=== PATIENT | male | born 1965 | race Caucasian/White ===

== ENCOUNTER 2019-06-16 09:04 | Inpatient (IN) | payer OTHER ==
[~2019-06-16] VITALS: Ht 180.3 cm; Wt 100.9 kg
[2019-06-16] MEDS ORDERED: Bumetanide2 MG PO (09:30)
[2019-06-16] MEDS ORDERED: LEVOFLOXACIN250 MG PO (09:30)
[2019-06-16] MEDS ORDERED: CLON.1 PO (09:30)
[2019-06-16 10:09] LABS: BASOPHILS ABSOLUTE AUTO 0.07 K/mm3 (0.00-0.23); BASOPHILS PERCENT AUTO 1 % (0-2); EOSINOPHILS PERCENT AUTO 1 % (0-6); Hematocrit 36.6 % (37.0-53.0); Hemoglobin 12.6 g/dL (13.5-17.5); IMMATURE GRAN ABSOLUTE AUTO 0.03 K/mm3 (0.00-0.10); IMMATURE GRAN PERCENT AUTO 0 % (0-1); LYMPHOCYTES ABSOLUTE AUTO 1.06 K/mm3 (0.84-5.20); LYMPHOCYTES PERCENT AUTO 11 % (21-46); MONOCYTES ABSOLUTE AUTO 0.48 K/mm3 (0.16-1.47); MONOCYTES PERCENT AUTO 5 % (4-13); Mean Corpuscular HGB 30.7 pg (26.0-34.0); Mean Corpuscular HGB Conc 34.4 g/dL (31.5-36.5); Mean Corpuscular Volume 89 fL (80-100); Mean Platelet Volume 9.1 fL (9.1-12.4); NEUTROPHILS ABSOLUTE AUTO 8.31 K/mm3 (1.96-9.15); NEUTROPHILS PERCENT AUTO 83 % (41-73); Platelet Count 200 K/mm3 (150-400); RDW Coefficient Variation 12.5 % (11.7-14.2); Red Blood Cell Count 4.11 M/mm3 (4.30-5.90); White Blood Cell Count 10.05 K/mm3 (4.00-11.30)
[2019-06-16 10:30] LABS: Calcium, Blood 8.1 mg/dL (8.5-10.1); Creatinine, Blood 5.92 mg/dL (0.60-1.20); Potassium, Blood 4.5 mmol/L (3.5-5.5)
[2019-06-16 11:46] LABS: International Normalized Ratio 1.08; Prothrombin Time Results 11.5 Sec (9.7-11.5)
[2019-06-16 11:51] LABS: CHOL/HDL RATIO 7.1; Cholesterol 270 mg/dL (50-200); HDL Cholesterol 38 mg/dL (>39); LDL/HDL RATIO 4.6; Low Density Lipoprotein Chol 176 mg/dL (0-110); Triglycerides 282 mg/dL (30-160); Very Low Density Lipoprot Chol 56 mg/dL (6-32)
[2019-06-16] MEDS ORDERED: Flexeril5 MG PO (13:06)
[2019-06-16] MEDS ORDERED: THYR60 PO (13:08)
[2019-06-16] MEDS ORDERED: LEVFLO500 PO (15:39)
--- NOTE | 2019-06-16 19:17 | NUR ---
SHIFT SUMMARY PT ALERT AND ORIENTED THIS SHIFT. PT TO THE FLOOR THIS AFTERNOON. PT DOWN FOR PERMACATH PLACEMENT SHORTLY AFTER ARRIVAL TO THE FLOOR. PT RETURNED FROM PROCEDURE ALERT AND ORIENTED. DRESSING C/D/I. DR HERNANDEZ TO THE ROOM SHORTLY AFTER, ORDERED DIALYSIS TOMORROW. PT SITTING UP IN CHAIR WITH SPOUSE IN ROOM.
--- NOTE | 2019-06-17 00:37 | NUR ---
PT HYPERTENSIVE, CALLED FOR HYDRALAXINE. GIVEN. WILL RECHECK BP. COMPLAINS OF ONGOING INTERMITANT NAUSEA, MUSCLE CRAMPS, AND LBP. REFUSES ZOFRAN AND TYLENOL.
--- NOTE | 2019-06-17 01:19 | NUR ---
VITALS RECHECKED BP MUCH IMPROVED. PT REQUESTED MELATONIN. GIVEN.
[2019-06-17 05:21] LABS: BASOPHILS ABSOLUTE AUTO 0.06 K/mm3 (0.00-0.23); BASOPHILS PERCENT AUTO 1 % (0-2); EOSINOPHILS ABSOLUTE AUTO 0.07 K/mm3 (0.00-0.68); EOSINOPHILS PERCENT AUTO 1 % (0-6); Hematocrit 32.8 % (37.0-53.0); IMMATURE GRAN ABSOLUTE AUTO 0.02 K/mm3 (0.00-0.10); IMMATURE GRAN PERCENT AUTO 0 % (0-1); LYMPHOCYTES PERCENT AUTO 15 % (21-46); MONOCYTES ABSOLUTE AUTO 0.73 K/mm3 (0.16-1.47); MONOCYTES PERCENT AUTO 7 % (4-13); Mean Corpuscular HGB 30.3 pg (26.0-34.0); Mean Corpuscular HGB Conc 33.5 g/dL (31.5-36.5); Mean Corpuscular Volume 90 fL (80-100); Mean Platelet Volume 9.5 fL (9.1-12.4); NEUTROPHILS ABSOLUTE AUTO 7.45 K/mm3 (1.96-9.15); NEUTROPHILS PERCENT AUTO 76 % (41-73); Platelet Count 187 K/mm3 (150-400); RDW Coefficient Variation 12.7 % (11.7-14.2); RDW Standard Deviation 41.9 fL (35.1-46.3); Red Blood Cell Count 3.63 M/mm3 (4.30-5.90); White Blood Cell Count 9.83 K/mm3 (4.00-11.30)
--- NOTE | 2019-06-17 05:29 | NUR ---
SHIFT SUMMARY PT IS PLEASANT THOUGH QUITE ANXIOUS. HE IS EAGER FOR DIALYSIS TODAY. DIALYSIS CATH PLACED ON 06/15 AND DRESSING HAS BEEN C/D/I THIS NIGHT. PT HAS HAD HYPERTENSION MUCH OF THE NIGHT. CALLED HOSPITALIST AND RECIEVED ORDER TO PUT PT ON TELE SO I COULD GIVE IV LABETALOL. CLONODINE NOT GIVEN PT STATED IT GAVE HIM THROAT PAIN/SWELLING. CALLED AGAIN AND RECIEVED ORDER FOR IV HYDRALAZINE WHICH WAS EFFECTIVE. PT HAS BEEN NAUSEATED THIS NIGHT OFF AND ON BUT HAS REFUSED IV ZOFRAN. HE HAS BEEN AAOX4 THROUGHOUT THE NIGHT. WILL CONTINUE TO MONITOR.
[2019-06-17 05:37] LABS: Albumin, Blood 2.8 g/dL (3.4-5.0); Anion Gap 11 mmol/L (6-16); Blood Urea Nitrogen 94 mg/dL (8-24); CO2, Blood 20 mmol/L (21-32); Calcium, Blood 7.8 mg/dL (8.5-10.1); Chloride, Blood 105 mmol/L (98-108); Creatinine, Blood 6.26 mg/dL (0.60-1.20); Glomerular Filtration Rate 10 (60-); Glucose, Blood 156 mg/dL (70-99); Phosphorus, Blood 6.6 mg/dL (2.5-4.9); Potassium, Blood 4.1 mmol/L (3.5-5.5); Sodium, Blood 136 mmol/L (136-145)
--- NOTE | 2019-06-17 05:45 | NUR ---
PT DID REFUSE MORNING BLOOD SUGAR CHECK. STATES IT IS NOT NECESSARY AND HE WOULD REFUSE THE NOVOLOG EVEN IF HIS BLOOD SUGAR WAS HIGH. STATES IF NEEDED HE WILL CONSENT TO BLOOD SUGAR CHECK BEFORE DIALYSIS.
--- NOTE | 2019-06-17 19:00 | NUR ---
PATIENT IS ALERT AND ORIENTED AND COOPERATIVE WITH CARE. HIS PERMA CATHETER WAS PLACED YESTERDAY. HE HAD HIS FIRST DIALYSIS TREATMENT TODAY. HE COMPLAINED OF FEELING WEAK AND DROWSY FOLLOWING DIALYSIS. HIS HAS BEEN AT THE BEDSIDE. HE WALKS TO THE BATHROOM WITH HIS ASSISTANCE. HE HAS A 24HR URINE BEING COLLECTED. WILL CONTINUE TO MONITOR
[2019-06-17 22:21] LABS: Protein, Urine Quantitative 611.5 mg/dL (0.0-11.9)
--- NOTE | 2019-06-18 00:30 | NUR ---
PT REFUSED 0000 BLOOD SUGAR WELL INSULIN. HE IS AAOX4, IN ROOM. HAS BEEN REFUSING BLOOD SUGARS SINCE LAST NIGHT.
--- NOTE | 2019-06-18 03:46 | NUR ---
PT VERY HYPERTENSIVE 214/101. GAVE HYDRALAZINE 10MG. WILL RECHECK.
[2019-06-18 04:49] LABS: Hematocrit 33.9 % (37.0-53.0); Hemoglobin 11.4 g/dL (13.5-17.5); Mean Corpuscular HGB 30.6 pg (26.0-34.0); Mean Corpuscular HGB Conc 33.6 g/dL (31.5-36.5); Mean Corpuscular Volume 91 fL (80-100); Mean Platelet Volume 9.6 fL (9.1-12.4); Platelet Count 216 K/mm3 (150-400); RDW Coefficient Variation 12.7 % (11.7-14.2); Red Blood Cell Count 3.73 M/mm3 (4.30-5.90); White Blood Cell Count 11.56 K/mm3 (4.00-11.30)
[2019-06-18 05:12] LABS: Albumin, Blood 2.9 g/dL (3.4-5.0); Anion Gap 10 mmol/L (6-16); Blood Urea Nitrogen 64 mg/dL (8-24); Bun/Creatinine Ratio 12.6 (12.0-20.0); CO2, Blood 28 mmol/L (21-32); Calcium, Blood 7.9 mg/dL (8.5-10.1); Chloride, Blood 99 mmol/L (98-108); Creatinine, Blood 5.06 mg/dL (0.60-1.20); Glomerular Filtration Rate 13 (60-); Glucose, Blood 169 mg/dL (70-99); Magnesium, Blood 1.9 mg/dL (1.6-2.4); Phosphorus, Blood 5.3 mg/dL (2.5-4.9); Potassium, Blood 4.4 mmol/L (3.5-5.5); Sodium, Blood 137 mmol/L (136-145)
--- NOTE | 2019-06-18 07:50 | NUR ---
SHIFT SUMMARY PT IS PLEASANT THOUGH VERY ANXIOUS. DOES NOT WANT TO HAVE Q6 BLOOD SUGARS AND HAS REFUSED THEM THIS NIGHT. BLOOD PRESSURE HAS BEEN HIGH, SEE VITALS. TREATED WITH HYDRALAZINE TO GOOD EFFECT. PT LEARNED THIS A.M. THAT HIS SISTER HAD AND IS VERY DISTRAUGHT. I HAVE OFFERED HOSPITAL SPIRITUAL SERVICES BUT PT DECLINES AT THIS TIME. PT IS BAPTISM. NAUSEA OFF AND ON THIS NIGHT TREATED WITH ZOFRAN. REPORT TO ONCOMING RN.
--- NOTE | 2019-06-18 08:10 | NUR ---
Patient said he would like me to come back later when he called me, to get a set of vitals
--- NOTE | 2019-06-18 12:51 | NUR ---
REPORTED OFF TO SHERRIE GRACIA RN. PATIENT IS ALERT AND ORIENTED. NOTIFIED DR. KEMP OF REFUSAL TO HAVE CBG CHECKED AND INSULIN. REMOVED FROM EMAR AND ORDERS. PATIENT AND ABLE TO MAKE THEIR NEEDS KNOWN. NO ACUTE ISSUES AT THIS TIME.
--- NOTE | 2019-06-18 13:06 | NUR ---
ASSUMED CARE: REPORT FROM EVA LERMA. PT SITTING IN ROOM EATING LUNCH WITH AT BEDSIDE. DENIES NEEDS AT THIS TIME. WILL CONTINUE TO MONITOR.
--- NOTE | 2019-06-18 17:51 | NUR ---
HIGH BP: BP AT 1553: 205/94 WITH HR OF 88. 10 MG IV HYDRALAZINE GIVEN AT 1604 ORDERED. BP RECHECKED AT 1708: 188/88 WITH HR OF 89. CALLED DR. KEMP WHO STATED TO GIVE ADDITIONAL 10 MG OF IV HYDRALAZINE AND VERIFIY WITH PT WHAT HIS ALLERGY IS TO CLONIDINE. 10 MG IV HYDRALAZINE GIVEN AT 1732, DURING WHICH PT ALSO COMPLAINED OF NAUSEA AND FEELING "A LITTLE ANXIOUS". 4 MG IV ZOFRAN GIVEN AT 1735. PT STATES HE'S NEVER TAKEN MEDICATION FOR ANXIETY BUT MAY CONSIDER IT LATER IF HE CONTINUES TO "FEEL THIS WAY." PT STATES WHEN HE TOOK CLONIDINE "A COUPLE OF DAYS AGO" IT MADE HIS "THROAT SWELL." WILL RECHECK BP AT [address] KEMP OF THE ABOVE INFORMATION.
--- NOTE | 2019-06-18 18:14 | NUR ---
SHIFT SUMMARY: BP RECHECKED AT 1801: 142/84 WITH HR OF [address] KEMP ORDERED 25 MG PO LOPRESSOR BID, FIRST DOSE GIVEN. DR. KEMP NOTIFIED OF PT'S STATED ANXIETY AND ORDERED 0.5 MG PO ATIVAN Q8H PRN. PT REPORTS HIS NAUSEA IS RESOLVED. HE IS CURRENTLY SITTING UP IN HIS CHAIR EATING DINNER WITH HIS AT BEDSIDE. NO OTHER CHANGES TO REPORT. WILL CONTINUE TO MONITOR AND REPORT TO ONCOMING RN.
--- NOTE | 2019-06-18 22:30 | NUR ---
PT VERY ANXIOUS AND IS HAVING DIFFICULTY RELAXING R/T PERSISTENT SYMPTOMS SINCE DIALYSIS ON DAY SHIFT. HE C/O NAGGING NAUSEA W/DRY HEAVING, TREMORS AND MUSCULAR CRAMPING THAT COMES/GOES AND HAVING PERIODIC HEAT WAVES THAT DISPERSE DOWN HIS ARMS AND DOWN HIS BODY. THESE ARE ACCOMPANIED W/DIAPHORESIS BUT THEN SYMPTOMS RESOLVE. HE ADMITS THEY STARTED AFTER 1ST DIALYSIS TX BUT ARE WORSE FOLLOWING THE 2ND DIALYSIS TX W/INCREASED FREQUENCY. HE HAS SENSATION OF "WANTING TO CLIMB OUT OF HIS OWN BODY" AND FEELING LIKE HE "IS NOT GOING TO SURVIVE THIS". REASSURANCE PROVIDED AND PT MEDICATED PRN W/MELATONIN AND ATIVAN PO PRN. WCTM AND REEVALUATE EFFECT OF MEDS. PT AWARE TO ALERT STAFF IF NO RELIEF AND/OR WORSENING. DISCUSSED W/FOOD SERVICE MANAGER, MAY ALERT PRN.
--- NOTE | 2019-06-19 00:30 | NUR ---
PT ASLEEP UPRIGHT IN RECLINER CHAIR AT THIS TIME AND APPEARS COMFORTABLE AFTER RECIEVING MELATONIN AND ATIVAN PO PRN. I ATTEMPTED TO WAKE PT TO ASSESS SYMPTOMS BUT HE SLEPT THROUGH IT. NO NAUSEA, DRY HEAVING, TREMOR OR S/S DIAPHORESIS OBSERVED. NO ACUTE CHANGES. WCTM CLOSELY.
--- NOTE | 2019-06-19 04:13 | NUR ---
THIS RN OBSERVED DISCREPENCY IN BP USING L.RADIAL CUFF VS L.UPPER ARM CUFF. BP TO L.RADIAL WAS 192/82 WHILE BP TO L.UPPER ARM WAS 132/72. I'D ANTICIPATED NEEDING TO GIVE HYDRALAZINE PRN FOR PREVIOUS BP OF 176/86 (L.RADIAL) BUT RECHECKED BP'S AND DETERMINED MED WASN'T NEEDED. WILL ENSURE DAY STAFF ARE AWARE.
--- NOTE | 2019-06-19 05:47 | NUR ---
SUMMARY: A/0X4, SPECIFIES NEEDS AND APPROPRIATE W/CARE. REMAINS AT BEDSIDE AND ASSISTS W/ADL'S. HE REMAINED IN RECLINER ENTIRETY OF NIGHT AND SLEPT INTERMITTENTLY. PT HAS SIGNIFICANT ANXIETY AND FEAR RE: SYMPTOMS POST DIALYSIS. HE C/O NAGGING NAUSEA W/DRY HEAVING, INTERMITTENT HEAT WAVES W/ DIAPHORESIS, MUSCLE CRAMPS THAT COME/GO AND TREMORS THAT ARE "UNBEARABLE" WHILE OCCURING. HE WAS MEDICATED AT HS W/MELATONIN PER PT REQUEST AND ATIVAN PRN TO ASSIST W/ANXIETY AND NAUSEA. MEDS WERE EFFECTIVE AT PROVIDING SOME RELIEF AND PROMOTING SLEEP/REST HOWEVER HE AWAKES NAUSEOUS W/ZOFRAN RECIEVED PRN FOR TEMPORARY EFFECT. HE HAS MANY Q'S FOR CONCERNING THESE SYMPTOMS (WHETHER THEY'RE NORMAL, HOW LONG THEY'LL LAST). DISCUSSION AND REASSURANCE PROVIDED BUT RN ENCOURAGED PT TO TALK FURTHER W/ TODAY. DESPITE SYMPTOMS, BP HAS IMPROVED AND PRN MEDS WEREN'T REQUIRED THIS SHIFT. BP SHOULD BE TAKEN TO KIM FOR ACCURACY, WILL ENSURE DAY STAFF ARE AWARE. DIALYSIS CATH PRESENT TO JELANI AND IV TO R.H IS SL. R.EYE REMAINS RED FROM OUTPT INJECTION. NO ACUTE CHANGES. VSS/AFEBRILE. WCTM/REPORT TO DAY RN.
[2019-06-19 05:55] LABS: BASOPHILS ABSOLUTE AUTO 0.06 K/mm3 (0.00-0.23); BASOPHILS PERCENT AUTO 1 % (0-2); EOSINOPHILS ABSOLUTE AUTO 0.06 K/mm3 (0.00-0.68); EOSINOPHILS PERCENT AUTO 1 % (0-6); Hematocrit 33.4 % (37.0-53.0); Hemoglobin 11.2 g/dL (13.5-17.5); IMMATURE GRAN ABSOLUTE AUTO 0.03 K/mm3 (0.00-0.10); IMMATURE GRAN PERCENT AUTO 0 % (0-1); LYMPHOCYTES ABSOLUTE AUTO 1.38 K/mm3 (0.84-5.20); LYMPHOCYTES PERCENT AUTO 13 % (21-46); MONOCYTES ABSOLUTE AUTO 0.86 K/mm3 (0.16-1.47); MONOCYTES PERCENT AUTO 8 % (4-13); Mean Corpuscular HGB 30.4 pg (26.0-34.0); Mean Corpuscular HGB Conc 33.5 g/dL (31.5-36.5); Mean Corpuscular Volume 91 fL (80-100); Mean Platelet Volume 9.4 fL (9.1-12.4); NEUTROPHILS ABSOLUTE AUTO 8.45 K/mm3 (1.96-9.15); NEUTROPHILS PERCENT AUTO 78 % (41-73); Platelet Count 224 K/mm3 (150-400); RDW Coefficient Variation 12.5 % (11.7-14.2); RDW Standard Deviation 41.4 fL (35.1-46.3); Red Blood Cell Count 3.68 M/mm3 (4.30-5.90); White Blood Cell Count 10.84 K/mm3 (4.00-11.30)
[2019-06-19 06:33] LABS: Albumin, Blood 2.9 g/dL (3.4-5.0); Anion Gap 9 mmol/L (6-16); Blood Urea Nitrogen 49 mg/dL (8-24); Bun/Creatinine Ratio 10.9 (12.0-20.0); CO2, Blood 29 mmol/L (21-32); Calcium, Blood 8.1 mg/dL (8.5-10.1); Chloride, Blood 94 mmol/L (98-108); Creatinine, Blood 4.49 mg/dL (0.60-1.20); Glomerular Filtration Rate 15 (60-); Glucose, Blood 165 mg/dL (70-99); Phosphorus, Blood 5.1 mg/dL (2.5-4.9); Potassium, Blood 3.9 mmol/L (3.5-5.5); Sodium, Blood 132 mmol/L (136-145)
--- NOTE | 2019-06-19 17:46 | NUR ---
SHIFT SUMMARY PATIENT MEDICATED X1 FOR PAIN AND X1 FOR ANXIETY THIS SHIFT. PATIENT GIVEN PRN HYDRALAZINE X1 FOR ELEVATED BLOOD PRESSURE. DENIES SHORTNESS OF BREATH. PATIENT UP SBA IN ROOM. PATIENT'S AT BEDSIDE. NO DIALYSIS TODAY. PATIENT REPORTS FEELING SOMEWHAT BETTER TODAY. CALL LIGHT IN REACH.
--- NOTE | 2019-06-20 04:35 | NUR ---
SHIFT SUMMARY PT REPORTS THAT HE IS FEELING MUCH BETTER THIS EVENING COMPARED TO THE LAST FEW DAYS. STATING HE "ALMOST FEELS BACK TO NORMAL". PT TOOK SEVERAL WALKS WITH SPOUSE AND TOLERATED SHORT WALKS IN THE HALLWAY WELL. NEW PERMACATH TO R CHEST WALL WITH NO S/S OF INFECTION. PT DID REPORT SOME PAIN IN HIS BACK AND NECK. MEDICATED X 1 W/ 5 MG FLEXERIL. PT APPEARED TO SLEEP WELL AFTER. OTHERWISE NO ACUTE CHANGES. PT SLEPT IN RECLINER THROUGH THE NIGHT. SPOUSE AT BEDSIDE. VITAL SIGNS STABLE. WILL CONTINUE TO MONITOR AND REPORT TO DAY RN.
[2019-06-20 06:15] LABS: Hematocrit 30.6 % (37.0-53.0); Hemoglobin 10.5 g/dL (13.5-17.5); Mean Corpuscular HGB 31.3 pg (26.0-34.0); Mean Corpuscular HGB Conc 34.3 g/dL (31.5-36.5); Mean Corpuscular Volume 91 fL (80-100); Mean Platelet Volume 9.7 fL (9.1-12.4); Platelet Count 190 K/mm3 (150-400); RDW Coefficient Variation 12.4 % (11.7-14.2); RDW Standard Deviation 41.4 fL (35.1-46.3); Red Blood Cell Count 3.36 M/mm3 (4.30-5.90); White Blood Cell Count 8.52 K/mm3 (4.00-11.30)
[2019-06-20 06:30] LABS: Albumin, Blood 2.7 g/dL (3.4-5.0); Anion Gap 10 mmol/L (6-16); Blood Urea Nitrogen 72 mg/dL (8-24); Bun/Creatinine Ratio 12.3 (12.0-20.0); CO2, Blood 29 mmol/L (21-32); Calcium, Blood 7.4 mg/dL (8.5-10.1); Chloride, Blood 92 mmol/L (98-108); Creatinine, Blood 5.86 mg/dL (0.60-1.20); Glomerular Filtration Rate 11 (60-); Glucose, Blood 159 mg/dL (70-99); Magnesium, Blood 2.1 mg/dL (1.6-2.4); Phosphorus, Blood 5.9 mg/dL (2.5-4.9); Potassium, Blood 4.2 mmol/L (3.5-5.5); Sodium, Blood 131 mmol/L (136-145)
--- NOTE | 2019-06-20 18:09 | NUR ---
SHIFT SUMMARY PATIENT DENEIS PAIN, NAUSEA, AND SHORTNESS OF BREATH THIS SHIFT. PATIENT UP INDEPENDENT IN ROOM AND WALKED IN HALLWAY WITH HIS THIS AFTERNOON. PATIENT HAD DIALYSIS TODAY. PATIENT MEDICATED X1 FOR ANXIETY BEFORE DIALYSIS THIS AM BUT HAS BEEN CALM AND RELAXED DURING THIS SHIFT. CALL LIGHT IN REACH.
--- NOTE | 2019-06-20 22:39 | NUR ---
PT AND AMBULATING ABOUT HALLS EARLIER. AFFECT CHEERFUL. RECEIVED PRN MUSCLE RELAXANT AT HS PER REQUEST. RESTING QUIETLY AT THIS TIME. CALL LIGHT IN REACH.
--- NOTE | 2019-06-21 05:03 | NUR ---
PT HAS BEEN RESTING QUIETLY WITH FEW INTERUPTIONS THIS SHIFT SINCE HS, AWAKENED EARLIER FOR BLOOD DRAW AND EMDS. CALL LIGHT IN REACH. NO C/O VOICED.
[2019-06-21 05:07] LABS: Hematocrit 29.5 % (37.0-53.0); Hemoglobin 9.8 g/dL (13.5-17.5); Mean Corpuscular HGB 30.4 pg (26.0-34.0); Mean Corpuscular HGB Conc 33.2 g/dL (31.5-36.5); Mean Corpuscular Volume 92 fL (80-100); Mean Platelet Volume 9.9 fL (9.1-12.4); Platelet Count 169 K/mm3 (150-400); RDW Coefficient Variation 12.3 % (11.7-14.2); RDW Standard Deviation 41.1 fL (35.1-46.3); Red Blood Cell Count 3.22 M/mm3 (4.30-5.90); White Blood Cell Count 10.13 K/mm3 (4.00-11.30)
[2019-06-21 05:30] LABS: Albumin, Blood 2.4 g/dL (3.4-5.0); Anion Gap 8 mmol/L (6-16); Blood Urea Nitrogen 65 mg/dL (8-24); Bun/Creatinine Ratio 14.3 (12.0-20.0); CO2, Blood 29 mmol/L (21-32); Calcium, Blood 7.2 mg/dL (8.5-10.1); Chloride, Blood 96 mmol/L (98-108); Creatinine, Blood 4.54 mg/dL (0.60-1.20); Glomerular Filtration Rate 14 (60-); Glucose, Blood 166 mg/dL (70-99); Magnesium, Blood 2.1 mg/dL (1.6-2.4); Phosphorus, Blood 4.9 mg/dL (2.5-4.9); Sodium, Blood 133 mmol/L (136-145)
[2019-06-21 08:08] LABS: ANTIGLOMERULAR BM AB 2 units (0-20)
[2019-06-21 15:08] LABS: ALBUMIN 2.7 g/dL (2.9-4.4); ALPHA-1-GLOBULIN 0.2 g/dL (0.0-0.4); ALPHA-2-GLOBULIN 1.1 g/dL (0.4-1.0); BETA GLOBULIN 0.9 g/dL (0.7-1.3); GAMMA GLOBULIN 0.6 g/dL (0.4-1.8); GLOBULIN, TOTAL 2.8 g/dL (2.2-3.9); IMMUNOGLOBULIN A, QN, SERUM 300 mg/dL (90-386); IMMUNOGLOBULIN G, QN, SERUM 569 mg/dL (700-1600); IMMUNOGLOBULIN M, QN, SERUM 62 mg/dL (20-172); M-SPIKE Not Observed g/dL (Not Observed); PROTEIN, TOTAL, SERUM 5.5 g/dL (6.0-8.5)
[2019-06-21] MEDS ORDERED: ACET325 PO (15:54)
[2019-06-21] MEDS ORDERED: CARV25 PO (15:54)
[2019-06-21] MEDS ORDERED: HYDR10 PO (15:55)
[2019-06-21] MEDS ORDERED: LORA.5 PO (15:56)
[2019-06-21] MEDS ORDERED: MELA3 PO (15:57)
[2019-06-21] MEDS ORDERED: LOSA50 PO (15:57)
[2019-06-21] MEDS ORDERED: ONDA4ODT MM (15:58)
[2019-06-22 13:07] LABS: ANA DIRECT Negative (Negative); ANTIMYELOPEROXIDASE (MPO) ABS <9.0 U/mL (0.0-9.0); ANTIPROTEINASE 3 (PR-3) ABS <3.5 U/mL (0.0-3.5); ATYPICAL PANCA <1:20 titer (Neg:<1:20); CYTOPLASMIC (C-ANCA) <1:20 titer (Neg:<1:20); PERINUCLEAR (P-ANCA) <1:20 titer (Neg:<1:20)
[2019-06-22 13:07] LABS: M-SPIKE, % Not Observed % (Not Observed); PROTEIN,TOTAL,URINE 663.5 mg/dL (Not Estab.)
== END 2019-06-21 17:15 | disposition home or self-care (01) | DRG 673 ==
LOC: ER 09:04 → MEDS 11:12
PROVIDERS: Emergency Medicine; Family Medicine; Internal Medicine Nephrology; Nurse Practitioner Acute Care; ADMIT Internal Medicine
PROC: 05HM33Z Insertion of Infusion Device into Right Internal Jugular Vein, Percutaneous Approach (ICD-10-PCS; principal; 2019-06-16)
PROC: B513YZA Fluoroscopy of Right Jugular Veins using Other Contrast, Guidance (ICD-10-PCS; 2019-06-16)
PROC: 0JH63XZ Insertion of Tunneled Vascular Access Device into Chest Subcutaneous Tissue and Fascia, Percutaneous Approach (ICD-10-PCS; 2019-06-16)
PROC: B543ZZA Ultrasonography of Right Jugular Veins, Guidance (ICD-10-PCS; 2019-06-16)
PROC: 5A1D70Z Performance of Urinary Filtration, Intermittent, Less than 6 Hours Per Day (ICD-10-PCS; 2019-06-17)
PROC: 5A1D70Z Performance of Urinary Filtration, Intermittent, Less than 6 Hours Per Day (ICD-10-PCS; 2019-06-17)
PROC: 5A1D70Z Performance of Urinary Filtration, Intermittent, Less than 6 Hours Per Day (ICD-10-PCS; 2019-06-17)
DX: I12.0 Hypertensive chronic kidney disease with stage 5 chronic kidney disease or end stage renal disease (principal); N18.6 End stage renal disease; E87.1 Hypo-osmolality and hyponatremia; N25.81 Secondary hyperparathyroidism of renal origin; E11.22 Type 2 diabetes mellitus with diabetic chronic kidney disease; E11.21 Type 2 diabetes mellitus with diabetic nephropathy; E11.319 Type 2 diabetes mellitus with unspecified diabetic retinopathy without macular edema; E03.9 Hypothyroidism, unspecified; I16.0 Hypertensive urgency; E83.39 Other disorders of phosphorus metabolism; D63.1 Anemia in chronic kidney disease; R80.9 Proteinuria, unspecified
CPT/HCPCS: 36415; 36558; 71045; 76937; 80048; 80061; 80069; 81050; 82784; 82947; 83036; 83516; 83520; 83735; 84156; 84165; 84166; 84443; 85014; 85018; 85025; 85027; 85610; 86038; 86256; 86317; 86334; 86335; 93005; 93010; 96374; 99284-25; A9270; A9270-GY; C1750; C1769; J0360; J0881; J1644; J2405; J7040

== ENCOUNTER 2019-12-22 14:08 | Day surgery (SDC) | payer MEDICARE, OTHER ==
[~2019-12-22] VITALS: Ht 180.3 cm; Wt 100.0 kg
[~2019-12-22 14:08] MED LIST: ACET325 PO; Bumetanide2 MG PO; CARV25 PO; CLON.1 PO; CLOP75; Flexeril5 MG PO; HYDR10 PO; LEVFLO500 PO; LEVOFLOXACIN250 MG PO; LORA.5 PO; LOSA50 PO; MELA3 PO; ONDA4ODT MM; THYR60 PO
[2019-12-22] MEDS ORDERED: CALCIUM ACETAT667 MG PO (15:20)
== END 2019-12-22 22:45 | disposition home or self-care (01) ==
LOC: MHTC 14:08
DX: Z45.2 Encounter for adjustment and management of vascular access device (principal); Z88.8 Allergy status to other drugs, medicaments and biological substances; Z91.041 Radiographic dye allergy status; Z91.012 Allergy to eggs; I12.0 Hypertensive chronic kidney disease with stage 5 chronic kidney disease or end stage renal disease; N18.6 End stage renal disease; Z99.2 Dependence on renal dialysis
CPT/HCPCS: 99152; 99153; C1725; C1769; C1894; J0360; J1200; J1644; J1720; J2250; J3010; J7030; J7040; Q9967

== ENCOUNTER 2019-12-26 12:12 | Emergency (ER) | payer MEDICARE, OTHER ==
[~2019-12-26] VITALS: Ht 180.3 cm; Wt 99.8 kg
[~2019-12-26 12:12] MED LIST changes: +CALCIUM ACETAT667 MG PO
[2019-12-26 13:01] LABS: BASOPHILS ABSOLUTE AUTO 0.04 K/mm3 (0.00-0.23); BASOPHILS PERCENT AUTO 0 % (0-2); EOSINOPHILS ABSOLUTE AUTO 0.23 K/mm3 (0.00-0.68); EOSINOPHILS PERCENT AUTO 2 % (0-6); Hematocrit 29.7 % (37.0-53.0); Hemoglobin 9.9 g/dL (13.5-17.5); IMMATURE GRAN ABSOLUTE AUTO 0.02 K/mm3 (0.00-0.10); IMMATURE GRAN PERCENT AUTO 0 % (0-1); LYMPHOCYTES ABSOLUTE AUTO 1.13 K/mm3 (0.84-5.20); LYMPHOCYTES PERCENT AUTO 12 % (21-46); MONOCYTES ABSOLUTE AUTO 0.78 K/mm3 (0.16-1.47); MONOCYTES PERCENT AUTO 8 % (4-13); Mean Corpuscular HGB 30.7 pg (26.0-34.0); Mean Corpuscular HGB Conc 33.3 g/dL (31.5-36.5); Mean Corpuscular Volume 92 fL (80-100); Mean Platelet Volume 9.8 fL (9.1-12.4); NEUTROPHILS ABSOLUTE AUTO 7.19 K/mm3 (1.96-9.15); NEUTROPHILS PERCENT AUTO 77 % (41-73); Platelet Count 150 K/mm3 (150-400); RDW Coefficient Variation 13.2 % (11.7-14.2); RDW Standard Deviation 44.9 fL (35.1-46.3); Red Blood Cell Count 3.23 M/mm3 (4.30-5.90); White Blood Cell Count 9.39 K/mm3 (4.00-11.30)
[2019-12-26 13:28] LABS: Albumin, Blood 3.1 g/dL (3.4-5.0); Albumin/Globulin Ratio 0.8 (0.8-1.8); Bilirubin, Total 0.8 mg/dL (0.1-1.0); Bun/Creatinine Ratio 11.8 (12.0-20.0); Calcium, Blood 8.5 mg/dL (8.5-10.1); Creatinine, Blood 5.61 mg/dL (0.60-1.20); Globulin, Blood 3.8 g/dL (2.2-4.0); Potassium, Blood 4.1 mmol/L (3.5-5.5); Total Protein, Blood 6.9 g/dL (6.4-8.2)
== END 2019-12-26 15:12 | disposition home or self-care (01) ==
LOC: ER 12:12
PROVIDERS: Physician Assistant
DX: I12.9 Hypertensive chronic kidney disease with stage 1 through stage 4 chronic kidney disease, or unspecified chronic kidney disease (principal); E11.22 Type 2 diabetes mellitus with diabetic chronic kidney disease; N18.9 Chronic kidney disease, unspecified; Z87.891 Personal history of nicotine dependence; Z79.899 Other long term (current) drug therapy; Z91.012 Allergy to eggs; Z91.041 Radiographic dye allergy status; Z88.8 Allergy status to other drugs, medicaments and biological substances
CPT/HCPCS: 36415; 80053; 85025; 93005; 93010; 99283-25

== ENCOUNTER 2020-01-19 12:27 | Day surgery (SDC) | payer MEDICARE, OTHER ==
[~2020-01-19] VITALS: Wt 97.0 kg
--- NOTE | 2020-01-19 18:12 | NUR ---
DISCHARGE PT DRESSED SELF WITH NO COMPLICATIONS. VSS. IV DCD WITH CATH INTACT. PT AND STATE THEIR UNDERSTANDING OF DC AND SITE CARE INSTRUCTIONS AND BOTH DENY ANY QUESTIONS OR CONCERNS. PT DCD WITH SLING. NO BLEEDING, OOZING OR HEMATOMA NOTED AT ACCESS SITE. PT TAKEN BY WHEELCHAIR TO EXIT WHERE WAITED WITH VEHICLE.
== END 2020-01-19 14:00 | disposition home or self-care (01) ==
LOC: MHTC 12:27
DX: I12.0 Hypertensive chronic kidney disease with stage 5 chronic kidney disease or end stage renal disease (principal); N18.6 End stage renal disease; E78.00 Pure hypercholesterolemia, unspecified; Z79.899 Other long term (current) drug therapy; Z99.2 Dependence on renal dialysis
CPT/HCPCS: 99152; 99153; C1769; C1894; J1644; J3010; J7040

== ENCOUNTER 2020-02-17 07:51 | Day surgery (SDC) | payer MEDICARE, OTHER ==
[~2020-02-17] VITALS: Ht 180.3 cm; Wt 95.4 kg
--- NOTE | 2020-02-17 09:48 | NUR ---
DR BAILON TO BEDSIDE TO DISCUSS FURTHER PLAN OF CARE. PT VERBALIZED UNDERSTANDING OF D/C INSTRUCTIONS.
--- NOTE | 2020-02-17 10:08 | NUR ---
PT VERBALIZED UNDERSTANDING OF D/C INSTRUCTIONS. PAPERWORK PROVIDED IN FOLDER. RIGHT ARM WITH MARQUISE PAD AND CLEAR TEGADERM INTACT, ARM BOARD FOR SUPPORT. PT REQUEST SLING TO TAKE HOME FOR RIGHT ARM. IV REMOVED WITH CATHETER INTACT, PRESSURE DRESSING APPLIED. AMBULATES WITH STEADY GAIT, REQUEST W/C RIDE OUT TO VEHICLE. NO ACUTE DISTRESS NOTED. MESSAGE LEFT WITH MARY FOR SCHEDULING F/U ULTRASOUND PER DR. BAILON.
== END 2020-02-17 10:00 | disposition home or self-care (01) ==
LOC: MHTC 07:51
DX: Z49.31 Encounter for adequacy testing for hemodialysis (principal); I12.0 Hypertensive chronic kidney disease with stage 5 chronic kidney disease or end stage renal disease; N18.6 End stage renal disease; E78.00 Pure hypercholesterolemia, unspecified; Z99.2 Dependence on renal dialysis; Z79.899 Other long term (current) drug therapy; Z91.041 Radiographic dye allergy status; Z88.8 Allergy status to other drugs, medicaments and biological substances; Z91.013 Allergy to seafood; Z91.012 Allergy to eggs; Z91.048 Other nonmedicinal substance allergy status
CPT/HCPCS: 37241; 75820; 99152; 99153; C1887; C1889; C1894; J1644; J3010; J7030; J7040; Q9967

== ENCOUNTER 2021-09-06 11:21 | Day surgery (SDC) | payer MEDICARE, BC, OTHER ==
[~2021-09-06] VITALS: Ht 180.3 cm; Wt 92.5 kg
[2021-09-06] MEDS ORDERED: AMLO5 PO (12:27)
[2021-09-06 13:06] LABS: Albumin, Blood 3.7 g/dL (3.4-5.0); Bilirubin, Total 1.3 mg/dL (0.1-1.0); Bun/Creatinine Ratio 10.8 (12.0-20.0); Calcium, Blood 9.2 mg/dL (8.5-10.1); Creatinine, Blood 5.01 mg/dL (0.60-1.20); Globulin, Blood 3.8 g/dL (2.2-4.0); Total Protein, Blood 7.5 g/dL (6.4-8.2)
--- NOTE | 2021-09-06 13:57 | NUR ---
09/06/21 FLORENTIN HALEY DURING PROCEDURE PRIOR TO LENS INSERTION, DR. SUN ASKED TO SEE THE LENSE SHEET, IT WAS PROVIDED AND HE ASKED FOR THE mta4Uo 18.5D. AFTER INSPECTION HE THEN DECIDED TO PROCEED WITH PRESELECTED LENSE (SN60WF 22.5D). THE MTA4UO WAS WASTED IN THE COMPUTER
== END 2021-09-06 14:31 | disposition home or self-care (01) ==
LOC: ORSCSDS 11:21
PROVIDERS: Ophthalmology
PROC: 08RK3JZ Replacement of Left Lens with Synthetic Substitute, Percutaneous Approach (ICD-10-PCS; principal; 2021-09-06 13:00)
DX: H25.13 Age-related nuclear cataract, bilateral (principal); E11.22 Type 2 diabetes mellitus with diabetic chronic kidney disease; I12.0 Hypertensive chronic kidney disease with stage 5 chronic kidney disease or end stage renal disease; N18.6 End stage renal disease; E78.00 Pure hypercholesterolemia, unspecified; E87.5 Hyperkalemia; Z79.899 Other long term (current) drug therapy
CPT/HCPCS: 80053; 82947; J2001; J3010; J3301; J7040; V2632

== ENCOUNTER → 2021-11-28 | Outpatient (CLI) | payer MEDICARE, OTHER, BC ==
[~2021-11-28] MED LIST changes: +AMLO5 PO
[2021-11-28 18:26] LABS: BASOPHILS ABSOLUTE AUTO 0.04 K/mm3 (0.00-0.23); BASOPHILS PERCENT AUTO 1 % (0-2); EOSINOPHILS ABSOLUTE AUTO 0.25 K/mm3 (0.00-0.68); EOSINOPHILS PERCENT AUTO 4 % (0-6); Hematocrit 33.7 % (37.0-53.0); IMMATURE GRAN ABSOLUTE AUTO 0.02 K/mm3 (0.00-0.10); IMMATURE GRAN PERCENT AUTO 0 % (0-1); LYMPHOCYTES ABSOLUTE AUTO 0.83 K/mm3 (0.84-5.20); LYMPHOCYTES PERCENT AUTO 13 % (21-46); MONOCYTES PERCENT AUTO 10 % (4-13); Mean Corpuscular HGB 34.8 pg (26.0-34.0); Mean Corpuscular HGB Conc 32.6 g/dL (31.5-36.5); Mean Corpuscular Volume 107 fL (80-100); Mean Platelet Volume 11.7 fL (9.1-12.4); NEUTROPHILS PERCENT AUTO 72 % (41-73); Platelet Count 81 K/mm3 (150-400); RDW Coefficient Variation 13.5 % (11.7-14.2); RDW Standard Deviation 53.4 fL (35.1-46.3); Red Blood Cell Count 3.16 M/mm3 (4.30-5.90); White Blood Cell Count 6.24 K/mm3 (4.00-11.30)
[2021-11-28 18:33] LABS: Bun/Creatinine Ratio 8.9 (12.0-20.0); Calcium, Blood 8.4 mg/dL (8.5-10.1); Potassium, Blood 5.8 mmol/L (3.5-5.5)
[2021-11-28 18:35] LABS: Creatinine, Blood 8.33 mg/dL (0.60-1.20)
== END | disposition home or self-care (01) ==
LOC: LAB SHORT 18:23
PROVIDERS: Physician Assistant Surgical
DX: R60.0 Localized edema (principal)
CPT/HCPCS: 80048; 83880; 85025

== ENCOUNTER 2022-10-23 08:40 | Day surgery (SDC) | payer MEDICARE, BC, OTHER | END 2022-10-23 23:02 | disposition home or self-care (01) | LOC: US 08:40 | DX: R18.8 Other ascites (principal) | CPT/HCPCS: 49083 ==

== ENCOUNTER 2022-10-31 10:44 | Day surgery (SDC) | payer MEDICARE, BC, OTHER | END 2022-10-31 22:55 | disposition home or self-care (01) | LOC: US 10:44 | PROC: 0W9G3ZZ Drainage of Peritoneal Cavity, Percutaneous Approach (ICD-10-PCS; principal; 2022-10-31) | DX: R18.8 Other ascites (principal) | CPT/HCPCS: 49083 ==

== ENCOUNTER 2022-11-06 08:49 | Day surgery (SDC) | payer MEDICARE, BC, OTHER | END 2022-11-06 22:36 | disposition home or self-care (01) | LOC: US 08:49 | DX: R18.8 Other ascites (principal) | CPT/HCPCS: 49083 ==

== ENCOUNTER 2022-11-13 08:44 | Day surgery (SDC) | payer MEDICARE, BC, OTHER | END 2022-11-13 22:57 | disposition home or self-care (01) | LOC: US 08:44 | DX: R18.8 Other ascites (principal) | CPT/HCPCS: 49083 ==

== ENCOUNTER 2022-11-19 11:01 | Day surgery (SDC) | payer MEDICARE, BC, OTHER | END 2022-11-19 22:37 | disposition home or self-care (01) | LOC: US 11:01 | DX: R18.8 Other ascites (principal) | CPT/HCPCS: 49083 ==

== ENCOUNTER 2022-11-28 09:33 | Day surgery (SDC) | payer MEDICARE, BC, OTHER | END 2022-11-28 22:41 | disposition home or self-care (01) | LOC: US 09:33 | DX: R18.8 Other ascites (principal) | CPT/HCPCS: 49083 ==

== ENCOUNTER 2022-12-04 09:21 | Day surgery (SDC) | payer MEDICARE, BC, OTHER | END 2022-12-04 22:45 | disposition home or self-care (01) | LOC: US 09:21 | DX: R18.8 Other ascites (principal) | CPT/HCPCS: 49083 ==

== ENCOUNTER 2022-12-11 09:40 | Day surgery (SDC) | payer MEDICARE, BC, OTHER | END 2022-12-11 22:58 | disposition home or self-care (01) | LOC: US 09:40 | DX: R18.8 Other ascites (principal) | CPT/HCPCS: 49083 ==

== ENCOUNTER 2022-12-18 09:40 | Day surgery (SDC) | payer MEDICARE, BC, OTHER | END 2022-12-18 22:50 | disposition home or self-care (01) | LOC: US 09:40 | DX: R18.8 Other ascites (principal) | CPT/HCPCS: 49083 ==

== ENCOUNTER 2022-12-25 09:42 | Day surgery (SDC) | payer MEDICARE, BC, OTHER | END 2022-12-25 22:44 | disposition home or self-care (01) | LOC: US 09:42 | DX: R18.8 Other ascites (principal) | CPT/HCPCS: 49083 ==

== ENCOUNTER 2023-01-08 09:36 | Day surgery (SDC) | payer MEDICARE, BC, OTHER | END 2023-01-08 23:36 | disposition home or self-care (01) | LOC: US 09:36 | DX: R18.8 Other ascites (principal) | CPT/HCPCS: 49083 ==

== ENCOUNTER 2023-01-22 09:31 | Day surgery (SDC) | payer MEDICARE, BC, OTHER | END 2023-01-22 22:47 | disposition home or self-care (01) | LOC: US 09:31 | DX: R18.8 Other ascites (principal) | CPT/HCPCS: 49083 ==

== ENCOUNTER 2023-02-05 09:28 | Day surgery (SDC) | payer MEDICARE, BC, OTHER | END 2023-02-05 23:12 | disposition home or self-care (01) | LOC: US 09:28 | DX: R18.8 Other ascites (principal) | CPT/HCPCS: 49083 ==

== ENCOUNTER 2023-02-12 09:35 | Day surgery (SDC) | payer MEDICARE, BC, OTHER | END 2023-02-12 22:48 | disposition home or self-care (01) | LOC: US 09:35 | DX: R18.8 Other ascites (principal) | CPT/HCPCS: 76705 ==

== ENCOUNTER 2023-02-19 09:36 | Day surgery (SDC) | payer MEDICARE, BC, OTHER | END 2023-02-19 22:50 | disposition home or self-care (01) | LOC: US 09:36 | DX: R18.8 Other ascites (principal) | CPT/HCPCS: 76705 ==

== ENCOUNTER 2023-02-26 09:36 | Day surgery (SDC) | payer MEDICARE, BC, OTHER | END 2023-02-26 22:41 | disposition home or self-care (01) | LOC: US 09:36 | DX: R18.8 Other ascites (principal) | CPT/HCPCS: 49083 ==

== ENCOUNTER 2023-03-17 07:58 | Day surgery (SDC) | payer MEDICARE, BC, OTHER | END 2023-03-17 22:57 | disposition home or self-care (01) | LOC: US 07:58 | DX: R18.8 Other ascites (principal) | CPT/HCPCS: 49083 ==

== ENCOUNTER → 2023-03-25 | Outpatient (CLI) | payer MEDICARE, BC, OTHER ==
[2023-03-25 16:46] LABS: BASOPHILS ABSOLUTE AUTO 0.07 K/mm3 (0.00-0.23); BASOPHILS PERCENT AUTO 1 % (0-2); EOSINOPHILS ABSOLUTE AUTO 0.26 K/mm3 (0.00-0.68); EOSINOPHILS PERCENT AUTO 4 % (0-6); Hematocrit 39.4 % (37.0-53.0); Hemoglobin 13.4 g/dL (13.5-17.5); IMMATURE GRAN ABSOLUTE AUTO 0.02 K/mm3 (0.00-0.10); IMMATURE GRAN PERCENT AUTO 0 % (0-1); LYMPHOCYTES PERCENT AUTO 12 % (21-46); MONOCYTES ABSOLUTE AUTO 0.85 K/mm3 (0.16-1.47); MONOCYTES PERCENT AUTO 12 % (4-13); Mean Corpuscular HGB 31.4 pg (26.0-34.0); Mean Corpuscular Volume 92 fL (80-100); Mean Platelet Volume 9.7 fL (9.1-12.4); NEUTROPHILS ABSOLUTE AUTO 4.94 K/mm3 (1.96-9.15); NEUTROPHILS PERCENT AUTO 71 % (41-73); Platelet Count 152 K/mm3 (150-400); RDW Coefficient Variation 15.6 % (11.7-14.2); RDW Standard Deviation 53.3 fL (35.1-46.3); Red Blood Cell Count 4.27 M/mm3 (4.30-5.90); White Blood Cell Count 6.94 K/mm3 (4.00-11.30)
[2023-03-25 17:05] LABS: International Normalized Ratio 1.09; Prothrombin Time Results 11.4 Sec (9.7-11.5)
== END ==
LOC: LAB 16:00 → LAB SHORT 16:00
PROVIDERS: Internal Medicine Nephrology
DX: N18.6 End stage renal disease (principal)
CPT/HCPCS: 85025; 85610; 85730

== ENCOUNTER 2023-03-28 13:36 | Day surgery (SDC) | payer MEDICARE, BC, OTHER | END 2023-03-29 23:15 | disposition home or self-care (01) | LOC: US 13:36 | DX: R18.8 Other ascites (principal); E11.319 Type 2 diabetes mellitus with unspecified diabetic retinopathy without macular edema; I10 Essential (primary) hypertension; E03.9 Hypothyroidism, unspecified | CPT/HCPCS: 76705 ==

== ENCOUNTER 2023-04-02 09:32 | Day surgery (SDC) | payer MEDICARE, BC, OTHER | END 2023-04-02 22:48 | disposition home or self-care (01) | LOC: US 09:32 | DX: R18.8 Other ascites (principal) | CPT/HCPCS: 49083 ==

== ENCOUNTER 2023-04-16 09:29 | Day surgery (SDC) | payer MEDICARE, BC, OTHER | END 2023-04-16 22:52 | disposition home or self-care (01) | LOC: US 09:29 | DX: R18.8 Other ascites (principal) | CPT/HCPCS: 49083 ==

== ENCOUNTER 2023-04-24 08:29 | Day surgery (SDC) | payer MEDICARE, BC, OTHER | END 2023-04-24 22:53 | disposition home or self-care (01) | LOC: US 08:29 | PROC: 0W9G3ZZ Drainage of Peritoneal Cavity, Percutaneous Approach (ICD-10-PCS; principal; 2023-04-24) | DX: R18.8 Other ascites (principal) | CPT/HCPCS: 49083 ==

== ENCOUNTER 2023-04-30 09:34 | Day surgery (SDC) | payer MEDICARE, BC, OTHER | END 2023-04-30 22:54 | disposition home or self-care (01) | LOC: US 09:34 | DX: R18.8 Other ascites (principal) | CPT/HCPCS: 76705 ==

== ENCOUNTER 2023-05-02 13:29 | Day surgery (SDC) | payer MEDICARE, BC, OTHER | END 2023-05-02 23:27 | disposition home or self-care (01) | LOC: US 13:29 | DX: R18.8 Other ascites (principal); E11.9 Type 2 diabetes mellitus without complications; I10 Essential (primary) hypertension; E03.9 Hypothyroidism, unspecified; E11.319 Type 2 diabetes mellitus with unspecified diabetic retinopathy without macular edema | CPT/HCPCS: 49083 ==

== ENCOUNTER 2023-05-08 09:23 | Day surgery (SDC) | payer MEDICARE, BC, OTHER | END 2023-05-08 23:12 | disposition home or self-care (01) | LOC: US 09:23 | DX: R18.8 Other ascites (principal) | CPT/HCPCS: 49083 ==

== ENCOUNTER 2023-05-15 09:32 | Day surgery (SDC) | payer MEDICARE, BC, OTHER | END 2023-05-15 22:46 | disposition home or self-care (01) | LOC: US 09:32 | DX: R18.8 Other ascites (principal) | CPT/HCPCS: 49083 ==

== ENCOUNTER 2023-05-22 09:25 | Day surgery (SDC) | payer MEDICARE, BC, OTHER | END 2023-05-22 22:44 | disposition home or self-care (01) | LOC: US 09:25 | PROC: 0W9G3ZZ Drainage of Peritoneal Cavity, Percutaneous Approach (ICD-10-PCS; principal; 2023-05-22) | DX: R18.8 Other ascites (principal) | CPT/HCPCS: 49083 ==

== ENCOUNTER 2023-05-29 09:26 | Day surgery (SDC) | payer MEDICARE, BC, OTHER | END 2023-05-29 22:43 | disposition home or self-care (01) | LOC: US 09:26 | DX: R18.8 Other ascites (principal) | CPT/HCPCS: 49083 ==

== ENCOUNTER 2023-07-17 09:22 | Day surgery (SDC) | payer MEDICARE, BC, OTHER | END 2023-07-17 22:57 | disposition home or self-care (01) | LOC: US 09:22 | PROC: 0W9G3ZZ Drainage of Peritoneal Cavity, Percutaneous Approach (ICD-10-PCS; principal; 2023-07-17) | DX: R18.8 Other ascites (principal) | CPT/HCPCS: 49083 ==

== ENCOUNTER 2023-07-31 09:16 | Day surgery (SDC) | payer MEDICARE, BC, OTHER ==
[2023-07-30 12:32] LABS: Hematocrit 41.6 % (37.0-53.0); Hemoglobin 13.5 g/dL (13.5-17.5); Mean Corpuscular HGB 33.1 pg (26.0-34.0); Mean Corpuscular HGB Conc 32.5 g/dL (31.5-36.5); Mean Corpuscular Volume 102 fL (80-100); Mean Platelet Volume 9.8 fL (9.1-12.4); Platelet Count 168 K/mm3 (150-400); RDW Coefficient Variation 15.6 % (11.7-14.2); RDW Standard Deviation 59.5 fL (35.1-46.3); Red Blood Cell Count 4.08 M/mm3 (4.30-5.90); White Blood Cell Count 7.58 K/mm3 (4.00-11.30)
[2023-07-30 12:42] LABS: International Normalized Ratio 1.02; Prothrombin Time Results 10.9 Sec (9.7-11.5)
== END 2023-07-31 22:52 | disposition home or self-care (01) ==
LOC: US 09:16
PROVIDERS: Internal Medicine Nephrology
DX: R18.8 Other ascites (principal)
CPT/HCPCS: 36415; 76705; 85027; 85610; 85730

== ENCOUNTER 2023-08-07 09:17 | Day surgery (SDC) | payer MEDICARE, BC, OTHER | END 2023-08-07 22:41 | disposition home or self-care (01) | LOC: US 09:17 | DX: R18.8 Other ascites (principal) | CPT/HCPCS: 49083 ==

== ENCOUNTER 2023-09-24 11:32 | Inpatient (IN) | payer MEDICARE, BC, OTHER ==
[~2023-09-24] VITALS: Ht 180.3 cm; Wt 81.9 kg
[~2023-09-24 11:32] MED LIST changes: +ARMOUR THYROID120 M1 PO; -THYR60 PO
[2023-09-24 12:17] LABS: BASOPHILS ABSOLUTE AUTO 0.09 K/mm3 (0.00-0.23); BASOPHILS PERCENT AUTO 0 % (0-2); EOSINOPHILS ABSOLUTE AUTO 0.04 K/mm3 (0.00-0.68); EOSINOPHILS PERCENT AUTO 0 % (0-6); Hemoglobin 14.2 g/dL (13.5-17.5); IMMATURE GRAN ABSOLUTE AUTO 0.17 K/mm3 (0.00-0.10); IMMATURE GRAN PERCENT AUTO 1 % (0-1); LYMPHOCYTES PERCENT AUTO 3 % (21-46); MONOCYTES ABSOLUTE AUTO 1.56 K/mm3 (0.16-1.47); MONOCYTES PERCENT AUTO 7 % (4-13); Mean Corpuscular HGB 33.3 pg (26.0-34.0); Mean Corpuscular HGB Conc 32.3 g/dL (31.5-36.5); Mean Corpuscular Volume 103 fL (80-100); Mean Platelet Volume 10.5 fL (9.1-12.4); NEUTROPHILS ABSOLUTE AUTO 20.43 K/mm3 (1.96-9.15); NEUTROPHILS PERCENT AUTO 89 % (41-73); Platelet Count 145 K/mm3 (150-400); Red Blood Cell Count 4.26 M/mm3 (4.30-5.90); White Blood Cell Count 22.99 K/mm3 (4.00-11.30)
[2023-09-24 12:44] LABS: BASOPHILS ABSOLUTE MAN 0.22 K/mm3 (0.00-0.23); BASOPHILS PERCENT MAN 1 % (0-2); EOSINOPHILS PERCENT MAN 0 % (0-6); LYMPHOCYTES ABSOLUTE MAN 0.68 K/mm3 (0.84-5.20); LYMPHOCYTES PERCENT MAN 3 % (21-46); MONOCYTES ABSOLUTE MAN 0.91 K/mm3 (0.16-1.47); MONOCYTES PERCENT MAN 4 % (4-13); NEUTROPHILS ABSOLUTE MAN 21.15 K/mm3 (1.96-9.15); SEG NEUTROPHILS PERCENT MAN 92 % (41-73); TOTAL CELLS COUNTED 100
[2023-09-24 12:45] LABS: Albumin, Blood 3.6 g/dL (3.4-5.0); Albumin/Globulin Ratio 0.9 (0.8-1.8); Bilirubin, Total 0.9 mg/dL (0.1-1.0); Bun/Creatinine Ratio 7.9 (12.0-20.0); Calcium, Blood 9.1 mg/dL (8.5-10.1); Creatinine, Blood 7.61 mg/dL (0.60-1.20); Globulin, Blood 4.2 g/dL (2.2-4.0); Potassium, Blood 5.4 mmol/L (3.5-5.5); Total Protein, Blood 7.8 g/dL (6.4-8.2)
[2023-09-24] MEDS ORDERED: CefTRIAXone Sodium 2,000 MG in NS 100 ML IV ONE (14:40)
[2023-09-24] MEDS ORDERED: Azithromycin 500 MG in NS 250 ML IV SCH (16:00)
[2023-09-24 17:44] VITALS: BP 143/83
--- NOTE | 2023-09-24 18:48 | NUR ---
ER ADMIT Admitted for hypoxia, sats stable on 1lpm O2. Trops 475 this afternoon, now Trops 1519, called ER Provider to report results. Telemetry in place NSR, no events. Dr. Burt called and ordered STAT Potassium labs, and wants called [facility] with results. Will continue plan of care.
--- NOTE | 2023-09-24 19:00 | NUR ---
CALLED DAVID Called to report POtassium of 5.3, per David request. No new orders, instructed to notify dialysis nurse to do HD tomorrow.
[2023-09-24 19:31] VITALS: BP 129/67
[2023-09-24] MEDS ORDERED: NS 250 ML IV PRN (20:15)
[2023-09-25] VITALS (16 sets, daily range): BP systolic 58–164; BP diastolic 72–90
[2023-09-25 01:39] LABS: BASOPHILS ABSOLUTE AUTO 0.07 K/mm3 (0.00-0.23); BASOPHILS PERCENT AUTO 1 % (0-2); EOSINOPHILS ABSOLUTE AUTO 0.18 K/mm3 (0.00-0.68); EOSINOPHILS PERCENT AUTO 2 % (0-6); Hematocrit 42.5 % (37.0-53.0); Hemoglobin 14.1 g/dL (13.5-17.5); IMMATURE GRAN ABSOLUTE AUTO 0.04 K/mm3 (0.00-0.10); IMMATURE GRAN PERCENT AUTO 0 % (0-1); LYMPHOCYTES ABSOLUTE AUTO 0.65 K/mm3 (0.84-5.20); LYMPHOCYTES PERCENT AUTO 6 % (21-46); MONOCYTES ABSOLUTE AUTO 0.96 K/mm3 (0.16-1.47); MONOCYTES PERCENT AUTO 8 % (4-13); Mean Corpuscular HGB Conc 33.2 g/dL (31.5-36.5); Mean Corpuscular Volume 102 fL (80-100); Mean Platelet Volume 10.2 fL (9.1-12.4); NEUTROPHILS ABSOLUTE AUTO 9.78 K/mm3 (1.96-9.15); NEUTROPHILS PERCENT AUTO 84 % (41-73); Platelet Count 130 K/mm3 (150-400); RDW Standard Deviation 66.5 fL (35.1-46.3); Red Blood Cell Count 4.15 M/mm3 (4.30-5.90); White Blood Cell Count 11.68 K/mm3 (4.00-11.30)
[2023-09-25 02:06] LABS: Magnesium, Blood 3.5 mg/dL (1.6-2.4)
[2023-09-25 02:22] LABS: Albumin, Blood 3.2 g/dL (3.4-5.0); Albumin/Globulin Ratio 0.8 (0.8-1.8); Bilirubin, Total 0.8 mg/dL (0.1-1.0); Bun/Creatinine Ratio 7.7 (12.0-20.0); Calcium, Blood 8.9 mg/dL (8.5-10.1); Creatinine, Blood 8.35 mg/dL (0.60-1.20); Phosphorus, Blood 4.2 mg/dL (2.5-4.9); Potassium, Blood 5.6 mmol/L (3.5-5.5); Total Protein, Blood 7.2 g/dL (6.4-8.2)
[2023-09-25] MEDS ORDERED: Insulin Regular 100 UNIT/ML 10ML Vial IV ONE (02:38)
[2023-09-25] MEDS ORDERED: Dextrose 5% 250 ML IV SCH (02:40)
--- NOTE | 2023-09-25 06:19 | NUR ---
SHIFT SUMMARY PT IN BED UPON ARRIVAL. HAD VISITORS FOR FIRST 2 HOURS. AFTER THEIR DEPARTURE, HE GOT UP TO SLEEP IN HIS CHAIR. STAYED WITH HIM AND SLEPT IN PT BED. EVENING LABS SHOWED DECREASE IN TROPONIN FROM 1508 TO 1363. CREATININE ALEXA FROM 7.[address] LAST NOTIFIED. 5% DEXTROSE AND HUMILIN R ORDERED, HOWEVER PT REFUSED UNTIL HE CAN SPEAK WITH DR HERNANDEZ. THIS RN SPOKE WITH DR. LAU WHO INFORMED DR. LAST OF PT REFUSAL. HE HAS OTHERWISE BEEN PLEASANT AND COOPERATIVE WITH CARE PROVIDED. DIALYSIS NEEDED TODAY. DAYSHIFT WILL NEED TO CALL IN TO SCHEDULE.
[2023-09-25 07:52] LABS: Magnesium, Blood 3.6 mg/dL (1.6-2.4)
[2023-09-25 08:02] LABS: Albumin, Blood 3.6 g/dL (3.4-5.0); Anion Gap 14 mmol/L (3-11); Blood Urea Nitrogen 67 mg/dL (8-24); CO2, Blood 32 mmol/L (21-32); Calcium, Blood 9.2 mg/dL (8.5-10.1); Chloride, Blood 91 mmol/L (98-108); Glucose, Blood 141 mg/dL (70-99); Phosphorus, Blood 4.4 mg/dL (2.5-4.9); Potassium, Blood 5.5 mmol/L (3.5-5.5); Sodium, Blood 131 mmol/L (136-145)
[2023-09-25 08:04] LABS: Bun/Creatinine Ratio 7.8 (12.0-20.0); Creatinine, Blood 8.54 mg/dL (0.60-1.20); Glomerular Filtration Rate 7 (60-)
[2023-09-25] MEDS ORDERED: Heparin Sodium,Porcine 5,000 UNIT/0.5 ML SDV SC SCH (09:00)
[2023-09-25] MEDS ORDERED: CefTRIAXone Sodium 2,000 MG in NS 100 ML IV SCH (09:00)
--- NOTE | 2023-09-25 10:51 | NUR ---
PER DR. DAVID MD DOES NOT HAVE A PROBLEM WITH PARACENTESIS ON SAME DAY DIALYSIS. ULTRASOUND NOTIFED
[2023-09-25 15:39] LABS: Automated BF WBC Count 0.317 K/mm3 (0-999)
[2023-09-25 15:41] LABS: Albumin, Body Fluid 2.2 g/dL
[2023-09-25 15:43] LABS: Body Fluid WBC Count 317 /mm3 (0-999)
[2023-09-25 15:44] LABS: Lactate Dehydrogenase, Body Fl 129 U/L
[2023-09-25 15:49] LABS: Glucose, Body Fluid 142 mg/dL
[2023-09-25 15:51] LABS: Protein, Body Fluid 3.8 g/dL
[2023-09-25 16:01] LABS: Appearance, Body Fluid Hazy (Clear); Color, Body Fluid Yellow (None-Yellow); RBC Count, Body Fluid 53 /mm3 (0-0)
[2023-09-25 16:06] LABS: Total Cell Count, Body Fluid 100
--- NOTE | 2023-09-25 17:35 | NUR ---
SUMMARY NO ACUTE CHANGES THIS SHIFT. DIALYSIS THIS MORNING. RESTARTED HOME MEDS PER DR. PEREZ. IS AT BEDSIDE. TELE MONITOR-NO EVENTS. 1 PERSON ASSIST. PT IS UNSTEADY. ALERT AND ORIENTED X4. PT IS ON 1.5L NC. R/A SAT MID 80S. PT IS ABLE TO MAKE NEEDS KNOWN. PARACENTESIS TODAY.
[2023-09-25] MEDS ORDERED: Cyclobenzaprine5 MG PO (19:23)
[2023-09-25] MEDS ORDERED: AmLODIPine Besylate 5 MG Tab PO SCH (21:00)
[2023-09-26] VITALS (17 sets, daily range): BP systolic 137–162; BP diastolic 72–85
--- NOTE | 2023-09-26 05:54 | NUR ---
SHIFT SUMMARY PT SLEPT THROUGH NIGHT. THIS RN UPDATED HIS MED LIST TO REFLECT HIS USE OF FLEXERIL, BUT IT HAS YET TO BE PROCESSED. PT REQUESTING TO HAVE TELE DC'D, HOWEVER, HE HAS A 1ST DEGREE HB AND A BBB, PER WHEAT WASHER. HIS TROPONIN AND CREATININE CONTINUE TO BE ELEVATED. WILL DISCUSS WITH DR. HERNANDEZ. PT SLEPT THROUGH NIGHT WITHOUT INCIDENT.
[2023-09-26 06:11] LABS: BASOPHILS ABSOLUTE AUTO 0.08 K/mm3 (0.00-0.23); BASOPHILS PERCENT AUTO 1 % (0-2); EOSINOPHILS ABSOLUTE AUTO 0.44 K/mm3 (0.00-0.68); EOSINOPHILS PERCENT AUTO 4 % (0-6); Hematocrit 40.4 % (37.0-53.0); Hemoglobin 13.2 g/dL (13.5-17.5); IMMATURE GRAN ABSOLUTE AUTO 0.04 K/mm3 (0.00-0.10); IMMATURE GRAN PERCENT AUTO 0 % (0-1); LYMPHOCYTES ABSOLUTE AUTO 0.93 K/mm3 (0.84-5.20); LYMPHOCYTES PERCENT AUTO 8 % (21-46); MONOCYTES ABSOLUTE AUTO 1.42 K/mm3 (0.16-1.47); MONOCYTES PERCENT AUTO 13 % (4-13); Mean Corpuscular HGB 33.6 pg (26.0-34.0); Mean Corpuscular HGB Conc 32.7 g/dL (31.5-36.5); Mean Corpuscular Volume 103 fL (80-100); Mean Platelet Volume 10.6 fL (9.1-12.4); NEUTROPHILS ABSOLUTE AUTO 8.38 K/mm3 (1.96-9.15); NEUTROPHILS PERCENT AUTO 74 % (41-73); Platelet Count 117 K/mm3 (150-400); RDW Coefficient Variation 17.6 % (11.7-14.2); RDW Standard Deviation 66.4 fL (35.1-46.3); Red Blood Cell Count 3.93 M/mm3 (4.30-5.90); White Blood Cell Count 11.29 K/mm3 (4.00-11.30)
[2023-09-26 06:37] LABS: Alanine Aminotransfer (ALT/SGP 14 U/L (12-78); Albumin, Blood 3.1 g/dL (3.4-5.0); Albumin/Globulin Ratio 0.9 (0.8-1.8); Alk Phos 91 U/L (50-136); Anion Gap 13 mmol/L (3-11); Aspartate Aminotrans (AST/SGOT 22 U/L (12-37); Bilirubin, Total 0.8 mg/dL (0.1-1.0); Blood Urea Nitrogen 59 mg/dL (8-24); Bun/Creatinine Ratio 8.1 (12.0-20.0); CO2, Blood 32 mmol/L (21-32); Calcium, Blood 8.9 mg/dL (8.5-10.1); Chloride, Blood 95 mmol/L (98-108); Globulin, Blood 3.6 g/dL (2.2-4.0); Glomerular Filtration Rate 8 (60-); Glucose, Blood 132 mg/dL (70-99); Magnesium, Blood 3.3 mg/dL (1.6-2.4); Phosphorus, Blood 4.1 mg/dL (2.5-4.9); Potassium, Blood 4.9 mmol/L (3.5-5.5); Sodium, Blood 135 mmol/L (136-145); Total Protein, Blood 6.7 g/dL (6.4-8.2)
[2023-09-26] MEDS ORDERED: Thyroid 60 MG Tab PO SCH (09:00)
[2023-09-26] MEDS ORDERED: Loperamide HCl 2 MG Cap PO PRN (17:35)
--- NOTE | 2023-09-26 17:51 | NUR ---
PT REFUSES TO WEAR TELE MONITOR TO BATHROOM. STATES THAT IT WONT STAY IN EITHER POCKET. EDUCATION PROVIDED ON RISKS OF NOT BEING MONITORED AT ALL TIMES DURING STAY IN HOSPITAL DUE TO RELATED ELEVATED TROPS. PT VERBALIZED UNDERSTANDING BUT REFUSES TO WEAR WHILE IN BATHROOM.
--- NOTE | 2023-09-26 18:14 | NUR ---
SUMMARY NO ACUTE CHANGES. PT REQUEST IMMODIUM FOR FREQUENT CHRONIC DIARRHEA IN THE HOSPITAL SETTING. PT ABLE TO MAKE NEEDS KNOWN. DIALYSIS TODAY. IN ROOM , ASSISTS PT WITH CARES. 1L NC. PT DESATS TO MID 80S ON R/A. AWARE
[2023-09-26] MEDS ORDERED: Lactobacil 2-S.Thermo-Bifido 1 1 Cap PO SCH (21:00)
[2023-09-27 05:44] VITALS: BP 162/83
[2023-09-27 06:19] LABS: BASOPHILS ABSOLUTE AUTO 0.06 K/mm3 (0.00-0.23); BASOPHILS PERCENT AUTO 1 % (0-2); EOSINOPHILS ABSOLUTE AUTO 0.52 K/mm3 (0.00-0.68); EOSINOPHILS PERCENT AUTO 7 % (0-6); Hematocrit 42.9 % (37.0-53.0); IMMATURE GRAN ABSOLUTE AUTO 0.03 K/mm3 (0.00-0.10); IMMATURE GRAN PERCENT AUTO 0 % (0-1); LYMPHOCYTES ABSOLUTE AUTO 0.84 K/mm3 (0.84-5.20); LYMPHOCYTES PERCENT AUTO 11 % (21-46); MONOCYTES ABSOLUTE AUTO 1.13 K/mm3 (0.16-1.47); MONOCYTES PERCENT AUTO 15 % (4-13); Mean Corpuscular HGB 33.7 pg (26.0-34.0); Mean Corpuscular HGB Conc 32.6 g/dL (31.5-36.5); Mean Corpuscular Volume 103 fL (80-100); Mean Platelet Volume 10.1 fL (9.1-12.4); NEUTROPHILS ABSOLUTE AUTO 5.17 K/mm3 (1.96-9.15); NEUTROPHILS PERCENT AUTO 67 % (41-73); Platelet Count 104 K/mm3 (150-400); RDW Coefficient Variation 17.2 % (11.7-14.2); RDW Standard Deviation 65.5 fL (35.1-46.3); Red Blood Cell Count 4.16 M/mm3 (4.30-5.90); White Blood Cell Count 7.75 K/mm3 (4.00-11.30)
--- NOTE | 2023-09-27 06:42 | NUR ---
Shift Summary in room t/o the night helping pt w any ambulation. Pt requested not to be disturbed until lab draws at 0500. He is on tele, no events t/o the night. No c/o of pain, no episodes of diahhrea. Pt did request immodium this AM. He is AOx4, cooperative with care.
[2023-09-27 06:52] LABS: Albumin, Blood 3.1 g/dL (3.4-5.0); Albumin/Globulin Ratio 0.8 (0.8-1.8); Bilirubin, Total 0.9 mg/dL (0.1-1.0); Bun/Creatinine Ratio 8.1 (12.0-20.0); Calcium, Blood 9.3 mg/dL (8.5-10.1); Creatinine, Blood 5.65 mg/dL (0.60-1.20); Magnesium, Blood 3.1 mg/dL (1.6-2.4); Phosphorus, Blood 4.6 mg/dL (2.5-4.9); Potassium, Blood 4.5 mmol/L (3.5-5.5); Total Protein, Blood 7.1 g/dL (6.4-8.2)
[2023-09-27 07:47] VITALS: BP 162/76
--- NOTE | 2023-09-27 09:00 | NUR ---
pt sitting up in chair, in room, a/ox4, cooperative with care, follows commands well, denies pain states he feels good, and wants to go home, in room and will be discharging today, pt had a home o2 eval and will need 1 liter with activity, on r/a at rest. call light in reach.
[2023-09-27] MEDS ORDERED: CEFP200 PO (10:58)
[2023-09-27] MEDS ORDERED: LACT PO (10:59)
--- NOTE | 2023-09-27 11:13 | NUR ---
Pt has been discharged to home, faxed new medications to [facility], iv removed intact, went over discharge instructions with him, he verbalized understanding. left with all his belonings via wheelchair with outreach counselor in attendence.
== END 2023-09-27 11:27 | disposition home or self-care (01) | DRG 193 ==
LOC: ER 11:32 → MEDS 11:33 → ENPENDDIS 09-27 10:45 → MEDS 09-27 11:27
PROVIDERS: Emergency Medicine; Internal Medicine Nephrology; Student in an Organized Health Care Education/Training Program; ADMIT Internal Medicine
PROC: 0W9G3ZZ Drainage of Peritoneal Cavity, Percutaneous Approach (ICD-10-PCS; principal; 2023-09-25)
PROC: 5A1D70Z Performance of Urinary Filtration, Intermittent, Less than 6 Hours Per Day (ICD-10-PCS; 2023-09-26)
DX: J18.9 Pneumonia, unspecified organism (principal); J96.01 Acute respiratory failure with hypoxia; N18.6 End stage renal disease; R18.8 Other ascites; I12.0 Hypertensive chronic kidney disease with stage 5 chronic kidney disease or end stage renal disease; N25.81 Secondary hyperparathyroidism of renal origin; E87.1 Hypo-osmolality and hyponatremia; R79.89 Other specified abnormal findings of blood chemistry; E78.5 Hyperlipidemia, unspecified; E03.9 Hypothyroidism, unspecified; Z99.2 Dependence on renal dialysis; G25.81 Restless legs syndrome; D63.1 Anemia in chronic kidney disease; E11.22 Type 2 diabetes mellitus with diabetic chronic kidney disease; E87.70 Fluid overload, unspecified; E87.5 Hyperkalemia; E83.39 Other disorders of phosphorus metabolism; E83.41 Hypermagnesemia; E88.09 Other disorders of plasma-protein metabolism, not elsewhere classified; Z98.890 Other specified postprocedural states; Z90.89 Acquired absence of other organs; Z87.891 Personal history of nicotine dependence; Z88.8 Allergy status to other drugs, medicaments and biological substances; Z91.012 Allergy to eggs; Z79.899 Other long term (current) drug therapy; Z79.2 Long term (current) use of antibiotics; Z91.041 Radiographic dye allergy status
CPT/HCPCS: 36415; 49083; 71045; 71250; 80053; 80069; 82042; 82945; 83605; 83615; 83735; 84100; 84132; 84145; 84157; 84484; 85025; 87040; 87070; 87077; 87186; 87205; 89051; 93005; 93010; 93306; 94760; 94761; 96365; 96368; 96376; 99285-25; A9270; G0378; J0456; J0696; J1815; J7050

== ENCOUNTER 2023-10-02 09:14 | Day surgery (SDC) | payer MEDICARE, BC, OTHER ==
[~2023-10-02 09:14] MED LIST changes: +CEFP200 PO; +Cyclobenzaprine5 MG PO; +LACT PO
== END 2023-10-02 22:45 | disposition home or self-care (01) ==
LOC: US 09:14
DX: R18.8 Other ascites (principal)
CPT/HCPCS: 36415; 49083; 85610; 85730

== ENCOUNTER 2023-10-10 08:19 | Day surgery (SDC) | payer MEDICARE, BC, OTHER | END 2023-10-10 23:12 | disposition home or self-care (01) | LOC: US 08:19 | DX: R18.8 Other ascites (principal) | CPT/HCPCS: 76705 ==

== ENCOUNTER 2023-10-23 09:18 | Day surgery (SDC) | payer MEDICARE, BC, OTHER | END 2023-10-24 22:42 | disposition home or self-care (01) | LOC: US 09:18 | DX: K70.31 Alcoholic cirrhosis of liver with ascites (principal) | CPT/HCPCS: 49083 ==

== ENCOUNTER → 2023-12-03 | Outpatient (CLI) | payer MEDICARE, BC, OTHER ==
[2023-12-03 14:35] LABS: Hematocrit 40.6 % (37.0-53.0); Hemoglobin 13.4 g/dL (13.5-17.5); Mean Corpuscular HGB 33.6 pg (26.0-34.0); Mean Corpuscular Volume 102 fL (80-100); Mean Platelet Volume 10.7 fL (9.1-12.4); Platelet Count 142 K/mm3 (150-400); RDW Coefficient Variation 15.9 % (11.7-14.2); RDW Standard Deviation 59.7 fL (35.1-46.3); Red Blood Cell Count 3.99 M/mm3 (4.30-5.90); White Blood Cell Count 7.11 K/mm3 (4.00-11.30)
[2023-12-03 15:22] LABS: International Normalized Ratio 1.09; Prothrombin Time Results 11.6 Sec (9.7-11.5)
== END ==
LOC: EDSTATUS 08:21 → LAB DAV 14:07
PROVIDERS: Internal Medicine Nephrology
DX: R18.8 Other ascites (principal)
CPT/HCPCS: 85027; 85610; 85730

== ENCOUNTER 2023-12-04 09:30 | Day surgery (SDC) | payer MEDICARE, BC, OTHER | END 2023-12-04 22:47 | disposition home or self-care (01) | LOC: US 09:30 | DX: R18.8 Other ascites (principal) | CPT/HCPCS: 76705 ==

== ENCOUNTER 2024-01-15 13:37 | Day surgery (SDC) | payer MEDICARE, BC, OTHER | END 2024-01-16 02:41 | disposition home or self-care (01) | LOC: US 13:37 | DX: R18.8 Other ascites (principal) | CPT/HCPCS: 76705 ==

== ENCOUNTER 2024-05-27 17:30 | Inpatient (IN) | payer MEDICARE, BC ==
[~2024-05-27] VITALS: Ht 185.4 cm; Wt 86.0 kg
[2024-05-27 18:19] LABS: BASOPHILS ABSOLUTE AUTO 0.07 K/mm3 (0.00-0.23); BASOPHILS PERCENT AUTO 1 % (0-2); EOSINOPHILS ABSOLUTE AUTO 0.21 K/mm3 (0.00-0.68); EOSINOPHILS PERCENT AUTO 3 % (0-6); Hematocrit 53.3 % (37.0-53.0); Hemoglobin 17.5 g/dL (13.5-17.5); IMMATURE GRAN ABSOLUTE AUTO 0.02 K/mm3 (0.00-0.10); IMMATURE GRAN PERCENT AUTO 0 % (0-1); LYMPHOCYTES PERCENT AUTO 10 % (21-46); MONOCYTES ABSOLUTE AUTO 0.89 K/mm3 (0.16-1.47); MONOCYTES PERCENT AUTO 11 % (4-13); Mean Corpuscular HGB 32.8 pg (26.0-34.0); Mean Corpuscular HGB Conc 32.8 g/dL (31.5-36.5); Mean Corpuscular Volume 100 fL (80-100); NEUTROPHILS ABSOLUTE AUTO 6.39 K/mm3 (1.96-9.15); NEUTROPHILS PERCENT AUTO 76 % (41-73); NRBC ABSOLUTE 0.02 K/mm3 (0.00-0.02); NRBC Auto 0.2 /100 WBC (0.0-0.2); Platelet Count 116 K/mm3 (150-400); RDW Standard Deviation 67.7 fL (35.1-46.3); Red Blood Cell Count 5.33 M/mm3 (4.30-5.90); White Blood Cell Count 8.38 K/mm3 (4.00-11.30)
[2024-05-27 18:58] LABS: Albumin, Blood 4.1 g/dL (3.4-5.0); Calcium, Blood 9.7 mg/dL (8.5-10.1); Creatinine, Blood 9.7 mg/dL (0.60-1.20); Globulin, Blood 4.2 g/dL (2.2-4.0); Potassium, Blood 4.6 mmol/L (3.5-5.5); Total Protein, Blood 8.3 g/dL (6.4-8.2)
[2024-05-27] MEDS ORDERED: CefTRIAXone Sodium 1,000 MG in NS 100 ML IV ONE (19:25)
[2024-05-27 19:26] LABS: Influenza A, PCR NEGATIVE (NEGATIVE); Influenza B, PCR NEGATIVE (NEGATIVE); Resp Syncytial Virus, PCR NEGATIVE (NEGATIVE); SARS-Cov-2 (COVID-19) PCR, MMC NEGATIVE (NEGATIVE)
[2024-05-27] MEDS ORDERED: Ondansetron HCl 2 MG / ML 2ML Vial IV PRN (20:10)
[2024-05-27] MEDS ORDERED: FLU VACC TS2024-25(6MOS UP)/PF 45 MCG/0.5 ML SYRINGE IM SCH (20:10)
[2024-05-27] MEDS ORDERED: Cyclobenzaprine HCl 10 MG Tab PO PRN (20:20)
[2024-05-28] VITALS (15 sets, daily range): BP systolic 105–143; BP diastolic 65–87
[2024-05-28 05:03] LABS: Hematocrit 49.9 % (37.0-53.0); Hemoglobin 16.3 g/dL (13.5-17.5); Mean Corpuscular HGB 32.7 pg (26.0-34.0); Mean Corpuscular HGB Conc 32.7 g/dL (31.5-36.5); Mean Corpuscular Volume 100 fL (80-100); Mean Platelet Volume 10.9 fL (9.1-12.4); Platelet Count 107 K/mm3 (150-400); RDW Coefficient Variation 18.3 % (11.7-14.2); RDW Standard Deviation 66.2 fL (35.1-46.3); Red Blood Cell Count 4.98 M/mm3 (4.30-5.90); White Blood Cell Count 8.81 K/mm3 (4.00-11.30)
[2024-05-28 05:37] LABS: Magnesium, Blood 3.6 mg/dL (1.6-2.4)
[2024-05-28 05:39] LABS: Albumin, Blood 3.7 g/dL (3.4-5.0); Albumin/Globulin Ratio 0.9 (0.8-1.8); Bilirubin, Total 0.9 mg/dL (0.1-1.0); Bun/Creatinine Ratio 8.4 (12.0-20.0); Creatinine, Blood 9.82 mg/dL (0.60-1.20); Globulin, Blood 3.9 g/dL (2.2-4.0); Phosphorus, Blood 8.8 mg/dL (2.5-4.9); Potassium, Blood 4.6 mmol/L (3.5-5.5); Total Protein, Blood 7.6 g/dL (6.4-8.2)
[2024-05-28 05:41] LABS: Calcium, Blood 9.2 mg/dL (8.5-10.1)
[2024-05-28] MEDS ORDERED: Thyroid 60 MG Tab PO SCH (06:00)
--- NOTE | 2024-05-28 06:55 | NUR ---
SHIFT SUMMARY PT ADMITTED 2229. AND FRIEND AT BEDSIDE. CRITICAL HIGH TROP 129 UP FROM 114 AT ADMISSION.. DOCTOR CALLED AND INFORMED. PT STATES HE PREFERS TO SLEEP IN A RECLINER WITH FEET ELEVATED. RECLINER PROVIDED AND PT RESTING PEACEFULLY. 0550, LAB RESULTS SHOWED CRITICAL LEVELS OF CREATININE 9.82 UP FROM 9.7, AND PHOSPHORUS 8.8 WITH NO PREVIOUS REFERENCE POINT. DOCTOR NOTIFIED. NO ORDERS GIVEN AT THIS TIME.
[2024-05-28] MEDS ORDERED: Heparin Sodium 5000 Units/ML 1ML MDV SC SCH (09:00)
[2024-05-28] MEDS ORDERED: AmLODIPine Besylate 5 MG Tab PO SCH (09:00)
[2024-05-28 10:13] LABS: International Normalized Ratio 1.24; Prothrombin Time Results 13.1 Sec (9.7-11.5)
[2024-05-28] MEDS ORDERED: ROPI.25 PO (12:01)
[2024-05-28] MEDS ORDERED: MERIBIN5 MG PO (12:02)
[2024-05-28 15:13] LABS: Automated BF WBC Count 0.201 K/mm3 (0-999)
[2024-05-28 15:36] LABS: Body Fluid WBC Count 201 /mm3 (0-999)
[2024-05-28 15:50] LABS: RBC Count, Body Fluid 49 /mm3 (0-0)
[2024-05-28 15:52] LABS: Albumin, Body Fluid 2.7 g/dL
[2024-05-28 15:54] LABS: Protein, Body Fluid 4.6 g/dL
[2024-05-28 16:19] LABS: Total Cell Count, Body Fluid 100
[2024-05-28 16:20] LABS: Color, Body Fluid Yellow (None-Yellow)
[2024-05-28] MEDS ORDERED: Albumin (Human) 25gm/100ml 100 ML IV ONE (16:50)
--- NOTE | 2024-05-28 19:16 | NUR ---
SHIFT SUMMARY PATIENT A/OX4, ABLE TO MAKE NEEDS KNOWN. STAND BY ASSIST. TELEMETRY IN PLACE, NO EVENTS NOTED THIS SHIFT. CONTINUOUS PULSE OX IN PLACE, SPO2 WNL ON 2 LPM VIA NASAL CANNULA. HOME 02 EVAL COMPLETED, PATIENT NEEDING 2 LPM CONTINUOUS OXYGEN AT HOME. PARACENTESIS COMPLETED TODAY WITH 3.5 LITERS REMOVED. ALBUMIN HELD PER DR. HERNANDEZ. RENAL DIET ORDERED PER NURSING PROTOCOL, CHANGED FROM REGULAR DIET. CRITICAL TRIPONIN REPORTED THIS SHIFT, TRENDING DOWN. MD AWARE. PATIENT HAD DIALYSIS TODAY. , PAO, AT BEDSIDE ALL OF SHIFT. PLAN ON DISCHARGE TOMORROW MORNING. TELEMETRY ORDER IN PLACE, NO EVENTS NOTED. NO OTHER CONCERNS AT THIS TIME.
--- NOTE | 2024-05-28 23:44 | NUR ---
DURING SHIFT ASSESSMENT PT REQUESTED NOT TO HAVE REQUIRED Q4H VS TAKEN BECAUSE THEY ARE ON TELE. PT REQUESTED NORMAL VS Q8H.
[2024-05-29] VITALS (14 sets, daily range): BP systolic 101–149; BP diastolic 58–81
[2024-05-29 05:22] LABS: BASOPHILS ABSOLUTE AUTO 0.07 K/mm3 (0.00-0.23); BASOPHILS PERCENT AUTO 1 % (0-2); EOSINOPHILS ABSOLUTE AUTO 0.33 K/mm3 (0.00-0.68); EOSINOPHILS PERCENT AUTO 4 % (0-6); Hemoglobin 16.7 g/dL (13.5-17.5); IMMATURE GRAN ABSOLUTE AUTO 0.02 K/mm3 (0.00-0.10); IMMATURE GRAN PERCENT AUTO 0 % (0-1); LYMPHOCYTES ABSOLUTE AUTO 0.58 K/mm3 (0.84-5.20); LYMPHOCYTES PERCENT AUTO 8 % (21-46); MONOCYTES ABSOLUTE AUTO 1.13 K/mm3 (0.16-1.47); MONOCYTES PERCENT AUTO 15 % (4-13); Mean Corpuscular HGB 32.7 pg (26.0-34.0); Mean Corpuscular HGB Conc 32.7 g/dL (31.5-36.5); Mean Corpuscular Volume 100 fL (80-100); Mean Platelet Volume 10.2 fL (9.1-12.4); NEUTROPHILS ABSOLUTE AUTO 5.55 K/mm3 (1.96-9.15); NEUTROPHILS PERCENT AUTO 72 % (41-73); Platelet Count 88 K/mm3 (150-400); RDW Coefficient Variation 18.5 % (11.7-14.2); RDW Standard Deviation 67.1 fL (35.1-46.3); White Blood Cell Count 7.68 K/mm3 (4.00-11.30)
--- NOTE | 2024-05-29 05:25 | NUR ---
SHIFT SUMMARY NOC PT A/O X 4. PLEASANT AND COOPERATIVE WITH CARE. VSS. STAYED NIGHT WITH PT. PT HAD DIALYSIS AND PARACENTESIS YESTERDAY AND FEELING FATIGUED. PT HAD MULTIPLE CRITICAL LABS PRE DIALYSIS AND AWAITING AM LABS FOR IMPROVEMENT. PT ON TELE SINUS/BBB/1DHB. ON 2.5L/NC HUMIDIFIED DUE TO C/O OF DRY MUCOUS MEMBRANES IN NARES, SPO2 >92%. PT EXPECTED TO DISCHARGE HOME TODAY. PT CURRENTLY RESTING WITH BED IN LOWEST POSITION, AND CALL LIGHT WITHIN REACH.
[2024-05-29 06:23] LABS: Magnesium, Blood 3.4 mg/dL (1.6-2.4)
--- NOTE | 2024-05-29 06:46 | NUR ---
PT REFUSED AM VS @ 4230.
[2024-05-29 06:54] LABS: Albumin, Blood 3.7 g/dL (3.4-5.0); Anion Gap 16 mmol/L (3-11); Blood Urea Nitrogen 60 mg/dL (8-24); Bun/Creatinine Ratio 7.4 (12.0-20.0); CO2, Blood 29 mmol/L (21-32); Chloride, Blood 92 mmol/L (98-108); Creatinine, Blood 8.11 mg/dL (0.60-1.20); Glomerular Filtration Rate 7 (60-); Glucose, Blood 223 mg/dL (70-99); Phosphorus, Blood 7.9 mg/dL (2.5-4.9); Potassium, Blood 4.4 mmol/L (3.5-5.5); Sodium, Blood 133 mmol/L (136-145)
--- NOTE | 2024-05-29 07:16 | NUR ---
NOTIFIED DR HERNANDEZ OF PT CRITICAL CREATNINE 8.11, AND PHOS 7.9, AND HE GAVE ORDERS TO CONTACT DIALYSIS NURSE TO HAVE PT GO THROUGH DIALYSIS TODAY.
--- NOTE | 2024-05-29 15:14 | NUR ---
DISCHARGE NOTE PATIENT A/OX4, ABLE TO MAKE NEEDS KNOWN. PARTICULAR WITH CARE, BUT COOPERATIVE AND PLEASANT. AT BEDSIDE ALL OF SHIFT. PATIENT HAD DIALYSIS THIS AM, PLAN TO HAVE ECHOCARDIOGRAM BUT REFUSED HE WANTED TO DISCHARGE TODAY. MD AWARE AND CLEARED DISCHARGE AND STATED OUTPATIENT ECHOCARDIOGRAM TO BE SCHEDULED. NO NEW MEDICATIONS AT TIME OF DISCHARGE. TELEMETRY AND IV REMOVED PRIOR TO DISCHARGE. FOLLOW UP APPOINTMETS WITH NEPHROLOGYA ND PRIMARY CARE DISCUSSED WITH PATIENT. PATIENT AND SPOUSE AGREEABLE TO PLAN. PATIENT NEEDING HOME OXYGEN, 2 LPM CONTINUOUS, OXYGEN DELIVERED AT BEDSIDE. PATIENT ASSISTED TO FAMILY VEHICLE VIA WHEELCHAIR AD [facility] STAFF. FAMILY WITH NO QUESTIONS OR OTHER CONCERNS.
== END 2024-05-29 14:29 | disposition home or self-care (01) | DRG 640 ==
LOC: ER 17:30 → MEDS 18:01
PROVIDERS: Internal Medicine; Internal Medicine Nephrology; Nurse Practitioner Acute Care; Physician Assistant; ADMIT Internal Medicine
PROC: 5A1D70Z Performance of Urinary Filtration, Intermittent, Less than 6 Hours Per Day (ICD-10-PCS; principal; 2024-05-28)
PROC: 0W9G3ZZ Drainage of Peritoneal Cavity, Percutaneous Approach (ICD-10-PCS; 2024-05-28)
DX: E87.70 Fluid overload, unspecified (principal); J96.01 Acute respiratory failure with hypoxia; N18.6 End stage renal disease; I12.0 Hypertensive chronic kidney disease with stage 5 chronic kidney disease or end stage renal disease; R18.8 Other ascites; J90 Pleural effusion, not elsewhere classified; E78.5 Hyperlipidemia, unspecified; E03.9 Hypothyroidism, unspecified; G25.81 Restless legs syndrome; E87.1 Hypo-osmolality and hyponatremia; E11.22 Type 2 diabetes mellitus with diabetic chronic kidney disease; E87.8 Other disorders of electrolyte and fluid balance, not elsewhere classified; D69.6 Thrombocytopenia, unspecified; I44.0 Atrioventricular block, first degree; I45.10 Unspecified right bundle-branch block; R79.89 Other specified abnormal findings of blood chemistry; E88.09 Other disorders of plasma-protein metabolism, not elsewhere classified; Z99.2 Dependence on renal dialysis; E83.39 Other disorders of phosphorus metabolism; Z88.8 Allergy status to other drugs, medicaments and biological substances; Z86.16 Personal history of COVID-19; Z87.891 Personal history of nicotine dependence; Z79.890 Hormone replacement therapy; Z76.82 Awaiting organ transplant status
CPT/HCPCS: 0241U; 36415; 49083; 71046; 80053; 80069; 82040; 82042; 83735; 84100; 84157; 84484; 85025; 85027; 85610; 85730; 89051; 93005; 93010; 93925; 94761; 94762; 96365; 99285-25; A9270; G0257; G0378; J0696

== ENCOUNTER → 2024-06-05 | Outpatient (CLI) | payer MEDICARE, BC ==
[~2024-06-05] MED LIST changes: +MERIBIN5 MG PO; +ROPI.25 PO
[2024-06-05 16:43] LABS: BASOPHILS ABSOLUTE AUTO 0.06 K/mm3 (0.00-0.23); BASOPHILS PERCENT AUTO 1 % (0-2); EOSINOPHILS ABSOLUTE AUTO 0.24 K/mm3 (0.00-0.68); EOSINOPHILS PERCENT AUTO 4 % (0-6); Hematocrit 49.7 % (37.0-53.0); Hemoglobin 15.8 g/dL (13.5-17.5); IMMATURE GRAN ABSOLUTE AUTO 0.02 K/mm3 (0.00-0.10); IMMATURE GRAN PERCENT AUTO 0 % (0-1); LYMPHOCYTES ABSOLUTE AUTO 0.71 K/mm3 (0.84-5.20); LYMPHOCYTES PERCENT AUTO 12 % (21-46); MONOCYTES ABSOLUTE AUTO 0.85 K/mm3 (0.16-1.47); MONOCYTES PERCENT AUTO 14 % (4-13); Mean Corpuscular HGB Conc 31.8 g/dL (31.5-36.5); Mean Corpuscular Volume 101 fL (80-100); Mean Platelet Volume 10.7 fL (9.1-12.4); NEUTROPHILS ABSOLUTE AUTO 4.22 K/mm3 (1.96-9.15); NEUTROPHILS PERCENT AUTO 69 % (41-73); Platelet Count 120 K/mm3 (150-400); RDW Coefficient Variation 17.3 % (11.7-14.2); RDW Standard Deviation 64.5 fL (35.1-46.3); Red Blood Cell Count 4.93 M/mm3 (4.30-5.90)
== END ==
LOC: LAB 16:38 → LAB SHORT 16:38
PROVIDERS: Physician Assistant
DX: K92.1 Melena (principal)
CPT/HCPCS: 85025

== ENCOUNTER 2024-06-09 08:07 | Day surgery (SDC) | payer MEDICARE, BC | END 2024-06-09 23:00 | disposition home or self-care (01) | LOC: US 08:07 | DX: R18.8 Other ascites (principal); I12.0 Hypertensive chronic kidney disease with stage 5 chronic kidney disease or end stage renal disease; N18.6 End stage renal disease; E03.9 Hypothyroidism, unspecified; E78.5 Hyperlipidemia, unspecified; G25.81 Restless legs syndrome; Z99.2 Dependence on renal dialysis; Z87.891 Personal history of nicotine dependence; Z79.82 Long term (current) use of aspirin; Z79.890 Hormone replacement therapy; Z79.899 Other long term (current) drug therapy; Z88.0 Allergy status to penicillin; Z88.8 Allergy status to other drugs, medicaments and biological substances | CPT/HCPCS: 76705 ==

== ENCOUNTER 2024-06-17 08:12 | Day surgery (SDC) | payer MEDICARE, BC | END 2024-06-17 23:00 | disposition home or self-care (01) | LOC: US 08:12 | DX: R18.8 Other ascites (principal); I12.0 Hypertensive chronic kidney disease with stage 5 chronic kidney disease or end stage renal disease; N18.6 End stage renal disease; E78.5 Hyperlipidemia, unspecified; E03.9 Hypothyroidism, unspecified; G25.81 Restless legs syndrome; R64 Cachexia; Z68.24 Body mass index [BMI] 24.0-24.9, adult; Z99.2 Dependence on renal dialysis; Z87.891 Personal history of nicotine dependence; Z79.82 Long term (current) use of aspirin; Z79.890 Hormone replacement therapy; Z79.899 Other long term (current) drug therapy; Z88.0 Allergy status to penicillin; Z88.8 Allergy status to other drugs, medicaments and biological substances | CPT/HCPCS: 49083 ==

== ENCOUNTER 2024-07-09 08:31 | Day surgery (SDC) | payer MEDICARE, BC | END 2024-07-09 23:00 | disposition home or self-care (01) | LOC: US 08:31 | DX: R18.8 Other ascites (principal) | CPT/HCPCS: 76705 ==

== ENCOUNTER → 2024-07-14 | Day surgery (SDC) | payer MEDICARE, BC | LOC: US 08:40 | DX: R18.8 Other ascites (principal); I10 Essential (primary) hypertension; E03.9 Hypothyroidism, unspecified; E11.319 Type 2 diabetes mellitus with unspecified diabetic retinopathy without macular edema | CPT/HCPCS: 49083 ==

== ENCOUNTER 2024-07-27 09:14 | Day surgery (SDC) | payer MEDICARE, BC ==
[2024-07-27 11:27] LABS: Automated BF RBC Count 0.394 M/mm3 (0-0); Automated BF WBC Count 0.361 K/mm3 (0-999)
[2024-07-27 11:29] LABS: Body Fluid WBC Count 361 /mm3 (0-999)
[2024-07-27 11:32] LABS: RBC Count, Body Fluid 394000 /mm3 (0-0)
[2024-07-27 11:48] LABS: Lactate Dehydrogenase, Body Fl 143 U/L; Protein, Body Fluid 4.1 g/dL
[2024-07-27 12:35] LABS: Appearance, Body Fluid Cloudy (Clear); Color, Body Fluid Red (None-Yellow); Total Cell Count, Body Fluid 100
[2024-07-27 13:31] LABS: pH, Body Fluid 7.9
== END 2024-07-27 23:00 | disposition home or self-care (01) ==
LOC: US 09:14
PROVIDERS: Internal Medicine Nephrology
DX: R18.8 Other ascites (principal); E03.9 Hypothyroidism, unspecified; E11.319 Type 2 diabetes mellitus with unspecified diabetic retinopathy without macular edema; I12.0 Hypertensive chronic kidney disease with stage 5 chronic kidney disease or end stage renal disease; E11.22 Type 2 diabetes mellitus with diabetic chronic kidney disease; N18.6 End stage renal disease; Z88.8 Allergy status to other drugs, medicaments and biological substances; Z91.013 Allergy to seafood; K76.9 Liver disease, unspecified; Z91.012 Allergy to eggs; Z91.041 Radiographic dye allergy status; Z87.891 Personal history of nicotine dependence
CPT/HCPCS: 49083; 74174; 80053; 83615; 83986; 84157; 85025; 85610; 87070; 87205; 88108; 88305; 89051; 99284-25; Q9967

== ENCOUNTER 2024-07-27 10:50 | Emergency (ER) | payer MEDICARE, BC ==
[~2024-07-27] VITALS: Ht 182.9 cm; Wt 78.0 kg
[2024-07-27] MEDS ORDERED: Ondansetron HCl 2 MG / ML 2ML Vial IV ONE (11:00)
[2024-07-27 11:25] LABS: BASOPHILS ABSOLUTE AUTO 0.07 K/mm3 (0.00-0.23); BASOPHILS PERCENT AUTO 1 % (0-2); EOSINOPHILS PERCENT AUTO 3 % (0-6); Hematocrit 46.7 % (37.0-53.0); IMMATURE GRAN ABSOLUTE AUTO 0.01 K/mm3 (0.00-0.10); IMMATURE GRAN PERCENT AUTO 0 % (0-1); LYMPHOCYTES ABSOLUTE AUTO 0.74 K/mm3 (0.84-5.20); LYMPHOCYTES PERCENT AUTO 12 % (21-46); MONOCYTES PERCENT AUTO 11 % (4-13); Mean Corpuscular HGB 32.6 pg (26.0-34.0); Mean Corpuscular HGB Conc 32.1 g/dL (31.5-36.5); Mean Corpuscular Volume 102 fL (80-100); Mean Platelet Volume 10.4 fL (9.1-12.4); NEUTROPHILS ABSOLUTE AUTO 4.44 K/mm3 (1.96-9.15); NEUTROPHILS PERCENT AUTO 72 % (41-73); Platelet Count 141 K/mm3 (150-400); RDW Coefficient Variation 17.7 % (11.7-14.2); RDW Standard Deviation 67.4 fL (35.1-46.3); White Blood Cell Count 6.16 K/mm3 (4.00-11.30)
[2024-07-27 11:39] LABS: International Normalized Ratio 1.14; Prothrombin Time Results 12.1 Sec (9.7-11.5)
[2024-07-27 12:08] LABS: Albumin, Blood 3.9 g/dL (3.4-5.0); Albumin/Globulin Ratio 0.9 (0.8-1.8); Bilirubin, Total 1.1 mg/dL (0.1-1.0); Bun/Creatinine Ratio 9.8 (12.0-20.0); Creatinine, Blood 5.7 mg/dL (0.60-1.20); Globulin, Blood 4.3 g/dL (2.2-4.0); Potassium, Blood 4.3 mmol/L (3.5-5.5); Total Protein, Blood 8.2 g/dL (6.4-8.2)
[2024-07-27 15:30] VITALS: BP 156/85
== END 2024-07-27 15:43 | disposition home or self-care (01) ==
LOC: ER 10:50
PROVIDERS: Emergency Medicine
DX: R18.8 Other ascites (principal); K76.9 Liver disease, unspecified; E11.22 Type 2 diabetes mellitus with diabetic chronic kidney disease; I12.0 Hypertensive chronic kidney disease with stage 5 chronic kidney disease or end stage renal disease; N18.6 End stage renal disease; Z88.8 Allergy status to other drugs, medicaments and biological substances; Z91.012 Allergy to eggs; Z91.041 Radiographic dye allergy status; Z87.891 Personal history of nicotine dependence
CPT/HCPCS: 74174; 80053; 85025; 85610; Q9967

== ENCOUNTER → 2024-08-04 | Outpatient (CLI) | payer MEDICARE, BC | END | disposition home or self-care (01) | LOC: LAB 11:40 → LAB SHORT 11:40 | DX: N18.6 End stage renal disease (principal) | CPT/HCPCS: 85730 ==

== ENCOUNTER 2024-08-05 09:08 | Day surgery (SDC) | payer MEDICARE, BC | END 2024-08-05 23:00 | disposition home or self-care (01) | LOC: US 09:08 | DX: R18.8 Other ascites (principal) | CPT/HCPCS: 49083 ==

== ENCOUNTER 2024-08-12 09:34 | Day surgery (SDC) | payer MEDICARE, BC | END 2024-08-12 23:00 | disposition home or self-care (01) | LOC: US 09:34 | DX: R18.8 Other ascites (principal) | CPT/HCPCS: 49083 ==

== ENCOUNTER 2024-08-19 14:26 | Day surgery (SDC) | payer MEDICARE, BC, OTHER | END 2024-08-19 23:00 | disposition home or self-care (01) | LOC: US 14:26 | DX: R18.8 Other ascites (principal) | CPT/HCPCS: 49083 ==

== ENCOUNTER 2024-10-07 09:31 | Day surgery (SDC) | payer MEDICARE, BC ==
[~2024-10-07 09:31] MED LIST changes: +ROPI1 PO
== END 2024-10-07 23:00 | disposition home or self-care (01) ==
LOC: US 09:31
DX: R18.8 Other ascites (principal)
CPT/HCPCS: 49083

== ENCOUNTER 2024-10-14 08:25 | Day surgery (SDC) | payer MEDICARE, BC | END 2024-10-14 23:00 | disposition home or self-care (01) | LOC: US 08:25 | DX: R18.8 Other ascites (principal) | CPT/HCPCS: 49083 ==

== ENCOUNTER 2024-10-21 09:33 | Day surgery (SDC) | payer MEDICARE, BC | END 2024-10-21 23:00 | disposition home or self-care (01) | LOC: US 09:33 | DX: R18.8 Other ascites (principal) | CPT/HCPCS: 49083 ==

== ENCOUNTER 2024-10-28 09:20 | Day surgery (SDC) | payer MEDICARE, BC | END 2024-10-28 23:00 | disposition home or self-care (01) | LOC: US 09:20 | DX: R18.8 Other ascites (principal) | CPT/HCPCS: 76705 ==

== ENCOUNTER 2024-11-04 14:42 | Day surgery (SDC) | payer MEDICARE, BC | END 2024-11-04 23:00 | disposition home or self-care (01) | LOC: US 14:42 | DX: R18.8 Other ascites (principal) | CPT/HCPCS: 76705 ==

== ENCOUNTER 2024-12-02 09:27 | Day surgery (SDC) | payer MEDICARE, BC | END 2024-12-02 22:58 | disposition home or self-care (01) | LOC: US 09:27 | DX: R18.8 Other ascites (principal); K74.60 Unspecified cirrhosis of liver; I13.2 Hypertensive heart and chronic kidney disease with heart failure and with stage 5 chronic kidney disease, or end stage renal disease; E11.22 Type 2 diabetes mellitus with diabetic chronic kidney disease; N18.6 End stage renal disease; I50.810 Right heart failure, unspecified; D63.1 Anemia in chronic kidney disease; I48.91 Unspecified atrial fibrillation; E03.9 Hypothyroidism, unspecified; Z99.2 Dependence on renal dialysis; Z79.890 Hormone replacement therapy; Z79.899 Other long term (current) drug therapy; Z88.8 Allergy status to other drugs, medicaments and biological substances | CPT/HCPCS: 49083 ==

== ENCOUNTER 2024-12-15 10:28 | Day surgery (SDC) | payer MEDICARE, BC | END 2024-12-15 23:00 | disposition home or self-care (01) | LOC: US 10:28 | DX: R18.8 Other ascites (principal); K74.60 Unspecified cirrhosis of liver; I13.2 Hypertensive heart and chronic kidney disease with heart failure and with stage 5 chronic kidney disease, or end stage renal disease; E11.22 Type 2 diabetes mellitus with diabetic chronic kidney disease; N18.6 End stage renal disease; I50.810 Right heart failure, unspecified; I48.91 Unspecified atrial fibrillation; I27.20 Pulmonary hypertension, unspecified; E03.9 Hypothyroidism, unspecified; E78.00 Pure hypercholesterolemia, unspecified; Z99.2 Dependence on renal dialysis; Z79.890 Hormone replacement therapy; Z79.899 Other long term (current) drug therapy; Z88.8 Allergy status to other drugs, medicaments and biological substances; Z91.011 Allergy to milk products | CPT/HCPCS: 49083 ==

== ENCOUNTER 2024-12-23 09:38 | Day surgery (SDC) | payer MEDICARE, BC | END 2024-12-23 23:00 | disposition home or self-care (01) | LOC: US 09:38 | DX: K74.60 Unspecified cirrhosis of liver (principal); R18.8 Other ascites; I27.20 Pulmonary hypertension, unspecified; I13.2 Hypertensive heart and chronic kidney disease with heart failure and with stage 5 chronic kidney disease, or end stage renal disease; E11.22 Type 2 diabetes mellitus with diabetic chronic kidney disease; N18.5 Chronic kidney disease, stage 5; I50.810 Right heart failure, unspecified; D63.1 Anemia in chronic kidney disease; I48.91 Unspecified atrial fibrillation; E03.9 Hypothyroidism, unspecified; K76.0 Fatty (change of) liver, not elsewhere classified; E78.00 Pure hypercholesterolemia, unspecified; Z79.890 Hormone replacement therapy; Z79.899 Other long term (current) drug therapy; Z88.8 Allergy status to other drugs, medicaments and biological substances; Z91.018 Allergy to other foods; Z99.2 Dependence on renal dialysis | CPT/HCPCS: 49083 ==

== ENCOUNTER 2024-12-28 10:14 | Day surgery (SDC) | payer MEDICARE, BC ==
[2024-12-28] VITALS (8 sets, daily range): BP systolic 118–132; BP diastolic 78–88
[~2024-12-28] VITALS: Ht 180.3 cm; Wt 79.4 kg
[~2024-12-28 10:14] MED LIST changes: +ADTHYZA PO; +MIDO5 PO; +SINEMET 25-1001 EAC1 PO
[2024-12-28] MEDS ORDERED: Heparin Sodium 1000 Units/ML 10ML MDV ONE (11:44)
[2024-12-28] MEDS ORDERED: NS 1,000 ML IV ONE (11:45)
[2024-12-28] MEDS ORDERED: NS 250 ML IV ONE (11:45)
[2024-12-28] MEDS ORDERED: NS 500 ML IV ONE (11:46)
--- NOTE | 2024-12-28 12:56 | NUR ---
pt back to recovery from lab. pt a&o. ij site soft and non-tender per pt. no bleeding/hematoma noted.
--- NOTE | 2024-12-28 13:29 | NUR ---
dr hayden at to discuss procedure and future plan of care. site soft and non-tender per pt. no bleeding/hematoma noted.
--- NOTE | 2024-12-28 13:56 | NUR ---
pt given dc instructions and verbalized understanding. site soft and non-tender per pt. no bleeding/hematoma noted. pt changed w/ help of . pt avinash to glenda via wc. pt to be taken home by .
== END 2024-12-28 14:41 | disposition home or self-care (01) ==
LOC: MHTC 10:14
DX: I27.29 Other secondary pulmonary hypertension (principal); I13.2 Hypertensive heart and chronic kidney disease with heart failure and with stage 5 chronic kidney disease, or end stage renal disease; E11.22 Type 2 diabetes mellitus with diabetic chronic kidney disease; N18.6 End stage renal disease; I50.22 Chronic systolic (congestive) heart failure; I25.10 Atherosclerotic heart disease of native coronary artery without angina pectoris; E78.00 Pure hypercholesterolemia, unspecified; Z99.2 Dependence on renal dialysis; Z79.899 Other long term (current) drug therapy; Z88.8 Allergy status to other drugs, medicaments and biological substances
CPT/HCPCS: 76937; 93451; C1894; J1644; J7030; J7040; J7050